=== PATIENT | male | born 1940 | race Caucasian/White ===

== ENCOUNTER 2017-01-14 12:38 | Inpatient (IN) | payer MEDICARE ==
[~2017-01-14] VITALS: Ht 167.6 cm; Wt 77.3 kg
--- NOTE | ~2017-01-14 | PROC NOTE ---
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 The patient reported he did have some difficulty with swallowing immediately after stroke, but since then has had no difficulty and is now reporting he is not having obvious difficulty swallowing. The patient currently has a left lower lobe pneumonia, which he reports this is second case of pneumonia. The previous one was premorbid to his stroke. The patient also reports he has COPD and his current diet is ADA 1800. METHODS AND MATERIALS: The patient was alert and oriented, able to feed himself and follow directions, participate in conversation. He was seated upright in a wheelchair and viewed in the lateral plane. This study was done in conjunction with radiologist, Dr. Webber. The patient was administered liquid via cup via straw applesauce half a teaspoon mixed with barium and a cookie mixed with barium. ORAL PHASE: The patient presents adequate mastication, oral awareness. He demonstrated normal ability to form and propel a cohesive bolus with all consistencies. PHARYNGEAL PHASE: The patient demonstrates normal pharyngeal phase. He did have a very slight 1 second delay with solids falling into the vallecula, then a pharyngeal swallow was triggered at the level; however, this can be considered normal in the elderly population. The patient had adequate laryngeal elevation, adequate posterior tongue to pharyngeal wall contact. He had adequate airway protection. No penetration or aspiration. No residue in the pharynx on any consistencies. RECOMMENDATIONS AND IMPRESSION: The patient presents with normal and functional oral and pharyngeal phases. No diet recommendations or therapy can be made at this time due to normal skills. Thank you for this referral. [place], [place] PROCEDURE NOTE NAME: DIPESH MINAYA UNIT #: [id number] ROOM: 408 DOCTOR: FRANCISCO MTZ BIRTHDATE: [birth year] FRANCISCO MTZ CM:PROCNOTE:PROCEDURE NOTE 1224 FRANCISCO MTZ
[~2017-01-14 12:38] MED LIST: ASPIRIN325 MG PO; ATENOLOL50 MG PO; CAPOTEN25 MG PO; CRESTOR40 MG PO; FINASTERIDE5 MG PO; PRILOSEC20 MG PO
[2017-01-14] MEDS ORDERED: ATORVASTATIN CA10 M1 PO (12:48)
[2017-01-14 13:08] LABS: HEMATOCRIT 45.4 % (42.0-52.0); HEMOGLOBIN 15.8 g/dl (14.0-18.0); MEAN CELL VOLUME 95.4 fl (80.0-94.0); MEAN CORPUSCULAR HGB 33.2 pg (27.0-31.0); MEAN CORPUSCULAR HGB CONC 34.8 g/dl (33.0-37.0); MEAN PLATELET VOLUME 10.2 fl (9.6-12.3); PLATELET COUNT AUTOMATED 242 10*3/uL (130-400); RED BLOOD COUNT 4.76 10*6/uL (4.50-5.90); RED CELL DISTRI WIDTH 12.9 % (0-14.5); WHITE BLOOD COUNT 21.3 10*3/uL (4.8-10.8)
[2017-01-14 13:25] LABS: LYMPHOCYTE # 0.4 10*3/uL (1.3-4.4); MONOCYTE # 1.3 10*3/uL (0.1-1.0); NEUTROPHIL # 19.6 10*3/uL (2.3-7.9); NEUTROPHILS 92 % (47-73); PLATELET SUFFICIENCY NORMAL (NORMAL); TOTAL CELLS COUNTED 100 #CELLS
[2017-01-14 13:27] LABS: BUN 9 mg/dl (7-24); CARBON DIOXIDE 25 mmol/L (21-32); CHLORIDE 105 mmol/L (98-107); EST GLOM FILT AFRICAN AMERICAN > 60 ml/min; GLUCOSE 119 mg/dL (65-99); POTASSIUM 3.7 mmol/L (3.5-5.1); SODIUM 140 mmol/L (136-145)
[2017-01-14 13:29] LABS: TROPONIN I < 0.015 ng/ml (<0.045)
[2017-01-14] MEDS ORDERED: PANTOPRAZOLE SO20 MG PO (15:50)
[2017-01-14] MEDS ORDERED: CLOPIDOGREL75 MG PO (15:52)
[2017-01-14] MEDS ORDERED: VITAMIN D31000 IU PO (16:13)
[2017-01-14 18:09] LABS: CKMB 1.4 ng/ml (0.5-3.6); CPK 84 U/L (39-308)
[2017-01-14 18:10] LABS: TROPONIN I < 0.015 ng/ml (<0.045)
[2017-01-14 18:19] LABS: LA>2 REFLEX 2 HR DRAW NOW
[2017-01-15 01:20] LABS: CKMB 2.2 ng/ml (0.5-3.6); CPK 95 U/L (39-308); TROPONIN I < 0.015 ng/ml (<0.045)
[2017-01-15 06:32] LABS: HEMATOCRIT 40.9 % (42.0-52.0); MEAN CELL VOLUME 94.9 fl (80.0-94.0); MEAN CORPUSCULAR HGB 32.5 pg (27.0-31.0); MEAN CORPUSCULAR HGB CONC 34.2 g/dl (33.0-37.0); MEAN PLATELET VOLUME 10.3 fl (9.6-12.3); PLATELET COUNT AUTOMATED 214 10*3/uL (130-400); RED BLOOD COUNT 4.31 10*6/uL (4.50-5.90); RED CELL DISTRI WIDTH 13.1 % (0-14.5); WHITE BLOOD COUNT 19.5 10*3/uL (4.8-10.8)
[2017-01-15 06:50] LABS: CKMB 2.4 ng/ml (0.5-3.6); CPK 99 U/L (39-308)
[2017-01-15 07:01] LABS: ALBUMIN 2.9 gm/dl (3.1-4.5); ALKALINE PHOSPHATASE 87 U/L (45-117); BILIRUBIN, TOTAL 1.1 mg/dl (0.2-1.0); BUN 11 mg/dl (7-24); CARBON DIOXIDE 23 mmol/L (21-32); CHLORIDE 110 mmol/L (98-107); CHOLESTEROL 144 mg/dL (<200); EST GLOM FILT AFRICAN AMERICAN > 60 ml/min; FREE T4 1.07 ng/dl (0.76-1.46); GLUCOSE 142 mg/dL (65-99); HDL CHOLESTEROL 52 mg/dl (40-60); LDL CHOLESTEROL 82 mg/dL (9-159); MAGNESIUM 2.1 mg/dL (1.5-2.1); PHOSPHOROUS 1.6 mg/dL (2.5-4.9); POTASSIUM 3.6 mmol/L (3.5-5.1); SGOT/AST 13 IU/L (3-35); SGPT/ALT 18 U/L (12-78); SODIUM 144 mmol/L (136-145); TOTAL PROTEIN 6.6 gm/dL (6.4-8.2); TRIGLYCERIDES 52 mg/dl (<150); VLDL CHOLESTEROL 10 mg/dL (6-40)
[2017-01-15 07:02] LABS: TROPONIN I < 0.015 ng/ml (<0.045)
[2017-01-15 07:05] LABS: THYROID STIM HORMONE (HS) 0.764 uIU/ml (0.358-4.75)
[2017-01-15 07:07] LABS: LYMPHOCYTE # 0.4 10*3/uL (1.3-4.4); NEUTROPHIL # 19.1 10*3/uL (2.3-7.9); NEUTROPHILS 98 % (47-73); TOTAL CELLS COUNTED 100 #CELLS
[2017-01-15 07:08] LABS: PLATELET SUFFICIENCY NORMAL (NORMAL)
[2017-01-15 07:45] LABS: HEMOGLOBIN A1c 5.5 % (4.8-5.6)
[2017-01-15 08:09] LABS: FOLIC ACID 2.58 ng/mL (>5.38); VITAMIN D, 25-HYDROXY 35.6 ng/mL (30-100)
[2017-01-16 07:05] LABS: HEMATOCRIT 40.2 % (42.0-52.0); HEMOGLOBIN 13.8 g/dl (14.0-18.0); MEAN CELL VOLUME 95.3 fl (80.0-94.0); MEAN CORPUSCULAR HGB 32.7 pg (27.0-31.0); MEAN CORPUSCULAR HGB CONC 34.3 g/dl (33.0-37.0); MEAN PLATELET VOLUME 10.6 fl (9.6-12.3); PLATELET COUNT AUTOMATED 257 10*3/uL (130-400); RED BLOOD COUNT 4.22 10*6/uL (4.50-5.90); RED CELL DISTRI WIDTH 13.4 % (0-14.5); WHITE BLOOD COUNT 25.6 10*3/uL (4.8-10.8)
[2017-01-16 07:33] LABS: BUN 17 mg/dl (7-24); CARBON DIOXIDE 24 mmol/L (21-32); CHLORIDE 109 mmol/L (98-107); EST GLOM FILT AFRICAN AMERICAN > 60 ml/min; GLUCOSE 138 mg/dL (65-99); POTASSIUM 3.3 mmol/L (3.5-5.1); SODIUM 146 mmol/L (136-145)
[2017-01-16 07:59] LABS: LYMPHOCYTE # 1.3 10*3/uL (1.3-4.4); NEUTROPHIL # 23.3 10*3/uL (2.3-7.9); NEUTROPHILS 91 % (47-73); PLATELET SUFFICIENCY NORMAL (NORMAL); TOTAL CELLS COUNTED 100 #CELLS
[2017-01-17 06:12] LABS: HEMATOCRIT 42.8 % (42.0-52.0); HEMOGLOBIN 14.2 g/dl (14.0-18.0); MEAN CELL VOLUME 98.2 fl (80.0-94.0); MEAN CORPUSCULAR HGB 32.6 pg (27.0-31.0); MEAN CORPUSCULAR HGB CONC 33.2 g/dl (33.0-37.0); MEAN PLATELET VOLUME 10.7 fl (9.6-12.3); PLATELET COUNT AUTOMATED 248 10*3/uL (130-400); RED BLOOD COUNT 4.36 10*6/uL (4.50-5.90); RED CELL DISTRI WIDTH 13.5 % (0-14.5); WHITE BLOOD COUNT 17.9 10*3/uL (4.8-10.8)
[2017-01-17 06:36] LABS: LYMPHOCYTE # 0.5 10*3/uL (1.3-4.4); METAMYELOCYTES 1 % (0-0); MONOCYTE # 0.4 10*3/uL (0.1-1.0); NEUTROPHIL # 16.8 10*3/uL (2.3-7.9); NEUTROPHILS 94 % (47-73); PLATELET SUFFICIENCY NORMAL (NORMAL); TOTAL CELLS COUNTED 100 #CELLS
[2017-01-17 06:40] LABS: ALBUMIN 3.1 gm/dl (3.1-4.5); ALKALINE PHOSPHATASE 83 U/L (45-117); BILIRUBIN, TOTAL 0.6 mg/dl (0.2-1.0); BUN 14 mg/dl (7-24); CARBON DIOXIDE 24 mmol/L (21-32); CHLORIDE 108 mmol/L (98-107); EST GLOM FILT AFRICAN AMERICAN > 60 ml/min; GLUCOSE 120 mg/dL (65-99); POTASSIUM 3.7 mmol/L (3.5-5.1); SGOT/AST 35 IU/L (3-35); SGPT/ALT 44 U/L (12-78); SODIUM 144 mmol/L (136-145); TOTAL PROTEIN 6.7 gm/dL (6.4-8.2)
[2017-01-18 06:17] LABS: HEMATOCRIT 43.5 % (42.0-52.0); HEMOGLOBIN 14.6 g/dl (14.0-18.0); MEAN CELL VOLUME 96.2 fl (80.0-94.0); MEAN CORPUSCULAR HGB 32.3 pg (27.0-31.0); MEAN CORPUSCULAR HGB CONC 33.6 g/dl (33.0-37.0); MEAN PLATELET VOLUME 10.6 fl (9.6-12.3); NUCLEATED RED BLOOD CELL 0.1 10*3/uL (0.0-0.0); NUCLEATED RED BLOOD CELL 0.4 % (0.0-0.0); PLATELET COUNT AUTOMATED 244 10*3/uL (130-400); RED BLOOD COUNT 4.52 10*6/uL (4.50-5.90); RED CELL DISTRI WIDTH 13.3 % (0-14.5); WHITE BLOOD COUNT 15.9 10*3/uL (4.8-10.8)
[2017-01-18 06:41] LABS: BUN 13 mg/dl (7-24); CARBON DIOXIDE 26 mmol/L (21-32); CHLORIDE 108 mmol/L (98-107); EST GLOM FILT AFRICAN AMERICAN > 60 ml/min; GLUCOSE 89 mg/dL (65-99); POTASSIUM 3.3 mmol/L (3.5-5.1); SGOT/AST 37 IU/L (3-35); SGPT/ALT 58 U/L (12-78); SODIUM 145 mmol/L (136-145)
[2017-01-18 06:42] LABS: ALKALINE PHOSPHATASE 77 U/L (45-117); BILIRUBIN, TOTAL 0.5 mg/dl (0.2-1.0); TOTAL PROTEIN 6.5 gm/dL (6.4-8.2)
[2017-01-18 06:52] LABS: LYMPHOCYTE # 1.1 10*3/uL (1.3-4.4); METAMYELOCYTES 2 % (0-0); MONOCYTE # 0.8 10*3/uL (0.1-1.0); MYELOCYTES 1 % (0-0); NEUTROPHIL # 13.5 10*3/uL (2.3-7.9); NEUTROPHILS 85 % (47-73); TOTAL CELLS COUNTED 100 #CELLS
[2017-01-18 06:53] LABS: PLATELET SUFFICIENCY NORMAL (NORMAL)
[2017-01-18] MEDS ORDERED: CLEOCIN HCL150 MG PO (10:22)
[2017-01-18] MEDS ORDERED: MUCINEX ER600 MG PO (10:22)
[2017-01-18] MEDS ORDERED: PREDNISONE10 MG PO (10:22)
[2017-01-18] MEDS ORDERED: TESSALON PERLE100 MG PO (12:19)
== END 2017-01-18 10:38 | disposition home or self-care (01) | DRG 871 ==
LOC: ED 12:38 → EDHOLD 14:39 → 4E 14:39
PROVIDERS: Emergency Medicine; Family Medicine; Internal Medicine
PROC: BD1BYZZ Fluoroscopy of Mouth/Oropharynx using Other Contrast (ICD-10-PCS; principal; 2017-01-15)
DX: A41.9 Sepsis, unspecified organism (principal); J18.9 Pneumonia, unspecified organism; J43.9 Emphysema, unspecified; N40.0 Benign prostatic hyperplasia without lower urinary tract symptoms; I10 Essential (primary) hypertension; E78.5 Hyperlipidemia, unspecified; I25.2 Old myocardial infarction; Z86.73 Personal history of transient ischemic attack (TIA), and cerebral infarction without residual deficits; Z87.891 Personal history of nicotine dependence; Z82.49 Family history of ischemic heart disease and other diseases of the circulatory system; Z84.89 Family history of other specified conditions; Z79.899 Other long term (current) drug therapy

== ENCOUNTER 2017-01-28 11:44 | Inpatient (IN) | payer MEDICARE ==
[~2017-01-28] VITALS: Ht 167.6 cm; Wt 76.2 kg
--- NOTE | ~2017-01-28 | PR ---
[place], [place] PROGRESS NOTE NAME: DIPESH MINAYA UNIT #: [id number] ROOM: 406 DOCTOR: KIMBERLY CARMONA MD BIRTHDATE: [birth year] DOS: 01/31/2017 SUBJECTIVE: The patient was seen and examined on 01/31/2017. He has been noted comfortable at this time without any distress. The patient's shortness of breath has been improving. Denies symptoms of chest pain or any abdominal pain. OBJECTIVE: VITAL SIGNS: For the patient which has been recorded showed the temperature of the patient noted as normal. The respiratory rate of the patient recorded as 16, heart rate 88. Blood pressure 138/80-145/84. The pulse oxygen saturation of the patient recorded as 90% on 3.5 L nasal cannula. HEENT: Shows no new change. NECK: Supple. CARDIOVASCULAR SYSTEM: S1, S2 is audible. LUNGS: The patient noted without any wheezing or crackles. Breaths are noted mildly decreased bilaterally. ABDOMEN: Soft, nontender. LABORATORY DATA: The patient's CBC today: WBC count 21.5, hemoglobin 14.6, hematocrit 43.4 with platelet count 244,000. 98% segmented neutrophils noted in the CBC. The chest x-ray of the patient that was done this morning for the patient was personally reviewed. The chest x-ray, the patient shows increased interstitial marking, the patient infiltration in the lower lungs bilaterally. IMPRESSION: 1. Resolving acute pneumonia gradually with leukocytosis, which has been noted, decreased partially from yesterday as well. 2. Acute exacerbation of chronic obstructive pulmonary disease with use of steroid resulting in leukocytosis as well. PLAN OF TREATMENT: The patient has been getting Solu-Medrol at the present time b.i.d. dosing at 30 mg b.i.d. that was started from yesterday. Leukocytosis, improving. Ambulation was encouraged. Usual care, other supportive therapy, plan of management. Other treatment plan of management will be continued. [place], [place] PROGRESS NOTE NAME: DIPESH MINAYA UNIT #: [id number] ROOM: 406 DOCTOR: KIMBERLY CARMONA MD BIRTHDATE: [birth year] KIMBERLY MISTRY MD CM:PNTRANS [id number] KIMBERLY MORRISSEY MD 01/31/17 181 interface
--- NOTE | ~2017-01-28 | PR ---
[place], [place] PROGRESS NOTE NAME: DIPESH MINAYA UNIT #: [id number] ROOM: 406 DOCTOR: KIMBERLY CARMONA MD BIRTHDATE: [birth year] DOS: 01/30/2017 PULMONARY FOLLOWUP SUBJECTIVE: He has been noted comfortable at this time, resting on his bed. The shortness of breath symptoms have been subsiding. There were no symptoms of chest pain or any abdominal pain. OBJECTIVE: VITAL SIGNS: Of the patient, which have been recorded shows the temperature noted normal, respiratory rate 18, heart rate 89, blood pressure 121/63. The pulse oxygen saturation of the patient recorded as 92% on 3 liters canula. HEENT: Examination shows no new change. NECK: Supple. CARDIOVASCULAR: S1, S2 is audible. LUNGS: Noted with mild expiratory wheezing, no crackles. Breath sounds noted moderately decreased bilaterally. ABDOMEN: Soft, nontender. LABORATORY DATA: CBC today: WBC count 31.8, hemoglobin 13.9, hematocrit 41.6, platelet count was normal, 96% segmented neutrophils. The BMP this morning, glucose 167, remaining CBC was normal. Urinalysis this morning was noted clear of any abnormalities. Blood culture from 01/28/2017 shows no bacterial growth, final culture results were pending. IMPRESSION: 1. The patient with acute exacerbation of chronic obstructive pulmonary disease, acute tracheobronchitis as well as acute pneumonia. 2. Leukocytosis. The patient, which has been noted yesterday, most likely induced by the corticosteroids. PLAN OF TREATMENT: Continuation of the bronchodilators, oxygen supplementation, use of the steroids. The patient's dose of steroids could be decreased today. Obtain a followup chest x-ray in the morning for reassessment. Continue in the meantime other supportive therapy, plan of management. Usual care. All other treatment plan and management. Further changes in treatment will be done based on the progression of the illness. [place], [place] PROGRESS NOTE NAME: DIPESH MINAYA UNIT #: [id number] ROOM: 406 DOCTOR: KIMBERLY CARMONA MD BIRTHDATE: [birth year] KIMBERLY MISTRY MD CM:PNTRANS [id number] [phone] KIMBERLY MORRISSEY MD 01/30/[id number] interface
--- NOTE | ~2017-01-28 | CON ---
[place], [place] REPORT OF CONSULTATION [id number] UNIT #: [id number] ROOM: 406 DOCTOR: KIMBERLY CARMONA MD BIRTHDATE: [birth year] DOS: 01/29/2017 PULMONARY CONSULTATION EVALUATION AND MANAGEMENT REQUESTING PHYSICIAN: The hospitalist service of the patient. REASON FOR CONSULTATION: Assess the patient for COPD. HISTORY OF PRESENT ILLNESS: This is a 76-year-old white male who has been previously admitted to the hospital and managed for the acute pneumonia. The patient has been treated and discharged home on antibiotics and prednisone. He was also noted for this patient, acute exacerbation of COPD at that time. The patient has been currently readmitted to the hospital. The patient came to the Emergency Room as the patient developed symptoms of coughing with intermittent sputum expectoration, yellowish in color. The quantity of sputum for this patient has been noted, mild to moderate. There were no symptoms of hemoptysis. The patient does complain of shortness of breath with some wheezing as well. There were no symptoms of chest pain. The patient has been admitted to the hospital, currently managed for the patient with acute exacerbation of COPD. He has been taking his nebulized bronchodilator stating the symptoms for the patient currently which had been worsened and nonresolving. REVIEW OF SYSTEMS: CONSTITUTIONAL SYMPTOMS: He does have symptoms of fatigue and tiredness, remained fatigued per the patient since discharge. Denies any changes in appetite. EYES: Denies any burning, redness, or tenderness. EARS, NOSE, THROAT SYMPTOMS: Denies sore throat, hoarseness, otalgia, postnasal drainage. CARDIOVASCULAR SYSTEM: Denies anginal pain, edema or pain of the lower extremities. GASTROINTESTINAL SYMPTOMS: Dysphagia, nausea, vomiting, diarrhea, abdominal pain, hematemesis, melena, or any abnormal weight loss history. GENITOURINARY SYMPTOMS: The patient denies dysuria, suprapubic pain, hematuria, noted some urinary hesitancy for this patient as well. Denies any flank pain. SKIN: Denies lesions or rashes. MUSCULOSKELETAL SYMPTOMS: Denies acute joint pain, redness, or tenderness. CENTRAL NERVOUS SYSTEM: Denies any symptoms of headache, diplopia, seizure or tingling sensation of the extremities. Remaining systems were reviewed with the patient, they were noted all negative. PAST MEDICAL HISTORY: Of the patient reported as history of: 1. Centrilobular emphysema. 2. Recent admission of medical management of the acute pneumonia for this patient. 3. Hyperlipidemia for this patient. 4. Essential hypertension. 5. History of coronary artery disease. 6. Past history in this patient with recovery neurological described. [place], [place] REPORT OF CONSULTATION NAME: DIPESH MINAYA UNIT #: [id number] ROOM: [facility] DOCTOR: FEDE MORRISSEY MD,KIMBERLY BIRTHDATE: [birth year] PAST SURGICAL HISTORY: ____ hernia repair. SOCIAL HISTORY: The patient denies any history of alcohol or any illicit drug use. He has noted tobacco use at a younger age and smoked up to 2 pack of cigarettes per day until tobacco cessation done 2006. Denies history of alcohol or any illicit drug use. The patient's work history was noted, work in the ____ for 40 years or greater with the exposure to the dust and possible asbestos as well. FAMILY HISTORY: Father at younger age per the patient during World War 2. Mother per the patient at the age of 8282 years old, complications related to coronary artery disease. History of cerebral palsy and coronary artery disease described in 2 sisters as well. MEDICATIONS: From home are reported use of: 1. Atenolol 50 mg daily. 2. Lipitor 10 mg daily. 3. Tessalon Perles 100 mg p.o. t.i.d. 4. Captopril 25 mg p.o. b.i.d. 5. Vitamin D 1000 international units of the patient b.i.d. 6. Plavix 75 mg daily. 7. Mucinex 1200 mg p.o. b.i.d. 8. Protonix 20 mg p.o. daily. DRUG ALLERGIES: Noted no known drug allergies. PHYSICAL EXAMINATION: GENERAL: [id number]-old male who has been currently noted awake and alert without any distress. The patient's height was recorded by the nursing staff at the time of admission with height of 5 feet 6 inches, weight of 168 pounds, BMI 27. VITAL SIGNS: The patient normal temperature, respiratory rate 18-20, heart rate of 92-89, blood pressure 118/77-124/64. Intake for the patient recorded 650 mL, the output was not recorded. Pulse oxygen saturation on room air was 93% saturation with 91% saturation. HEENT: Head was atraumatic. Eyes nonicterus. NECK: Supple. CARDIOVASCULAR SYSTEM: S1, S2 audible. LUNGS: For the patient noted without any wheezing or crackles at the present time. Breaths are noted mildly decreased bilaterally. ABDOMEN: Soft, nontender, bowel sounds present. CENTRAL NERVOUS SYSTEM: Cranial nerves 2-12 intact. No focal deficit. MUSCULOSKELETAL SYMPTOMS: No deformities. SKIN: No lesions or rashes. LABORATORY DATA: CBC of the patient 01/28/2017, on admission, WBC count 26,000, hemoglobin and hematocrit was normal, platelet count of 209,000, 93% segmented neutrophils. CMP of the patient on 01/28/2017, BUN and creatinine was normal for this patient was noted, albumin 3.0. The troponin was noted as normal. [place], [place] REPORT OF CONSULTATION NAME: DIPESH MINAYA UNIT #: [id number] ROOM: [facility] DOCTOR: FEDE MORRISSEY MD,KIMBERLY BIRTHDATE: [birth year] Ultrasound of the testes of the patient that was done yesterday was described as normal testicular examination except large bilateral hydroceles. PT and PTT for this patient were noted as normal this morning. CMP this morning for the patient, glucose 157, normal BUN and creatinine. Total protein of the patient, albumin mildly decreased. CBC this morning, WBC count 20.6, hemoglobin 14.1, hematocrit 41.6, platelet count of 211,000. The chest x-ray 2-view that was done yesterday in the Emergency Room, the patient shows progressive resolution, improvement in the left lower lobe area of consolidation, infiltration, but the resolution noted somewhat incomplete. IMPRESSION: 1. The patient who has been currently admitted to the hospital noted acute exacerbation of chronic obstructive pulmonary disease, acute tracheobronchitis with the leukocytosis. 2. Recent hospitalization of the patient, which has been noted for the patient with the review of the medical record for the patient under care of the hospitalist services from the date of service of 01/14/2017 and discharged home for this patient on 01/18/2017. 3. Past history of heavy nicotine dependence as well. The leukocytosis may be considered as a result of ongoing incomplete resolution infection and a possibility of steroid-induced leukocytosis as well. 4. Symptoms of benign prostatic hyperplasia. 5. Hydrocele for the patient was also noted bilaterally on this admission as well. 6. History of coronary artery disease and other problem including past strokes for the patient, which remains all stable. PLAN OF TREATMENT: The patient has been currently getting intravenous antibiotics for the patient that will be continued. The dose of Solu-Medrol for the patient has been currently been given the patient 40 mg 8 hours. The dose will be decreased for the patient monitoring leukocytosis. Obtain the sputum for Gram stain and culture. Order the Mucinex for the patient to help clear secretion from the endobronchial tree as well. Also ordered the flutter valve use. Further treatment changes will be done based on the progression of the illness. KIMBERLY MISTRY MD CM:CONSTR:REPORT OF CONSULTATION 1206 02/01/17 0229 interface
[~2017-01-28 11:44] MED LIST changes: +ATORVASTATIN CA10 M1 PO; +CLEOCIN HCL150 MG PO; +CLOPIDOGREL75 MG PO; +MUCINEX ER600 MG PO; +PANTOPRAZOLE SO20 MG PO; +PREDNISONE10 MG PO; +TESSALON PERLE100 MG PO; +VITAMIN D31000 IU PO
[2017-01-28 11:50] VITALS: BP 109/68
[2017-01-28 12:32] LABS: MEAN CELL VOLUME 96.3 fl (80.0-94.0); MEAN CORPUSCULAR HGB 32.8 pg (27.0-31.0); MEAN CORPUSCULAR HGB CONC 34.1 g/dl (33.0-37.0); MEAN PLATELET VOLUME 9.8 fl (9.6-12.3); PLATELET COUNT AUTOMATED 209 10*3/uL (130-400); RED BLOOD COUNT 4.57 10*6/uL (4.50-5.90); RED CELL DISTRI WIDTH 13.6 % (0-14.5)
[2017-01-28 12:49] LABS: BASOPHIL # 0.3 10*3/uL (0-0.1); BASOPHILS 1 % (0-1); LYMPHOCYTE # 0.5 10*3/uL (1.3-4.4); NEUTROPHIL # 24.2 10*3/uL (2.3-7.9); NEUTROPHILS 93 % (47-73); TOTAL CELLS COUNTED 100 #CELLS
[2017-01-28 12:50] LABS: ALKALINE PHOSPHATASE 70 U/L (45-117); BUN 19 mg/dl (7-24); CARBON DIOXIDE 25 mmol/L (21-32); CHLORIDE 107 mmol/L (98-107); EST GLOM FILT AFRICAN AMERICAN > 60 ml/min; GLUCOSE 91 mg/dL (65-99); PLATELET SUFFICIENCY NORMAL (NORMAL); POTASSIUM 3.9 mmol/L (3.5-5.1); SGOT/AST 14 IU/L (3-35); SGPT/ALT 28 U/L (12-78); SODIUM 141 mmol/L (136-145); TOTAL PROTEIN 6.4 gm/dL (6.4-8.2)
[2017-01-28 12:52] LABS: TROPONIN I < 0.015 ng/ml (<0.045)
[2017-01-28] MEDS ORDERED: PROSCAR5 M1 PO (15:54)
[2017-01-28] MEDS ORDERED: ALEVE220 MG PO (15:57)
[2017-01-28] MEDS ORDERED: ROSUVASTATIN CA40 MG PO (15:58)
[2017-01-28] MEDS ORDERED: ALLERGY RELIEF25 MG PO (15:59)
[2017-01-28 16:00] VITALS: BP 118/77
[2017-01-28 20:00] VITALS: BP 108/62
[2017-01-29] VITALS: BP 124/63
[2017-01-29 06:51] LABS: HEMATOCRIT 41.6 % (42.0-52.0); HEMOGLOBIN 14.1 g/dl (14.0-18.0); MEAN CELL VOLUME 97.7 fl (80.0-94.0); MEAN CORPUSCULAR HGB 33.1 pg (27.0-31.0); MEAN CORPUSCULAR HGB CONC 33.9 g/dl (33.0-37.0); MEAN PLATELET VOLUME 10.2 fl (9.6-12.3); PLATELET COUNT AUTOMATED 211 10*3/uL (130-400); RED BLOOD COUNT 4.26 10*6/uL (4.50-5.90); RED CELL DISTRI WIDTH 13.6 % (0-14.5); WHITE BLOOD COUNT 20.6 10*3/uL (4.8-10.8)
[2017-01-29 07:13] LABS: CHLORIDE 108 mmol/L (98-107); POTASSIUM 3.8 mmol/L (3.5-5.1); SODIUM 141 mmol/L (136-145)
[2017-01-29 07:19] LABS: INTERNATIONAL NORM RATIO 1.1 (2.0-3.5); PROTHROMBIN TIME 11.6 SECONDS (9.0-12.4)
[2017-01-29 07:23] LABS: ALBUMIN 2.9 gm/dl (3.1-4.5); ALKALINE PHOSPHATASE 65 U/L (45-117); BILIRUBIN, TOTAL 0.9 mg/dl (0.2-1.0); BUN 22 mg/dl (7-24); CARBON DIOXIDE 23 mmol/L (21-32); EST GLOM FILT AFRICAN AMERICAN > 60 ml/min; GLUCOSE 157 mg/dL (65-99); MAGNESIUM 2.3 mg/dL (1.5-2.1); PHOSPHOROUS 2.7 mg/dL (2.5-4.9); SGOT/AST 10 IU/L (3-35); SGPT/ALT 23 U/L (12-78); TOTAL PROTEIN 6.3 gm/dL (6.4-8.2)
[2017-01-29 07:44] LABS: LYMPHOCYTE # 0.4 10*3/uL (1.3-4.4); MONOCYTE # 0.2 10*3/uL (0.1-1.0); NEUTROPHILS 97 % (47-73); PLATELET SUFFICIENCY NORMAL (NORMAL); TOTAL CELLS COUNTED 100 #CELLS
[2017-01-29 08:00] VITALS: BP 120/80
[2017-01-29 12:00] VITALS: BP 118/61
[2017-01-29 16:00] VITALS: BP 127/65
[2017-01-29 20:00] VITALS: BP 120/67
[2017-01-30] VITALS: BP 144/73
[2017-01-30 05:55] LABS: HEMATOCRIT 41.6 % (42.0-52.0); HEMOGLOBIN 13.9 g/dl (14.0-18.0); MEAN CELL VOLUME 98.1 fl (80.0-94.0); MEAN CORPUSCULAR HGB 32.8 pg (27.0-31.0); MEAN CORPUSCULAR HGB CONC 33.4 g/dl (33.0-37.0); MEAN PLATELET VOLUME 10.2 fl (9.6-12.3); PLATELET COUNT AUTOMATED 227 10*3/uL (130-400); RED BLOOD COUNT 4.24 10*6/uL (4.50-5.90); RED CELL DISTRI WIDTH 13.6 % (0-14.5); WHITE BLOOD COUNT 31.8 10*3/uL (4.8-10.8)
[2017-01-30 06:20] LABS: BUN 19 mg/dl (7-24); CARBON DIOXIDE 25 mmol/L (21-32); CHLORIDE 109 mmol/L (98-107); EST GLOM FILT AFRICAN AMERICAN > 60 ml/min; GLUCOSE 167 mg/dL (65-99); POTASSIUM 4.2 mmol/L (3.5-5.1); SODIUM 141 mmol/L (136-145)
[2017-01-30 06:37] LABS: BILIRUBIN NEGATIVE (NEGATIVE); BLOOD NEGATIVE (NEGATIVE); CLARITY CLEAR (CLEAR); COLOR YELLOW (YELLOW); GLUCOSE NEGATIVE (NEGATIVE); KETONE NEGATIVE (NEGATIVE); LEUKO ESTERASE NEGATIVE (NEGATIVE); NITRITE NEGATIVE (NEGATIVE); PH 6.5 (5.0-9.0); PROTEIN TRACE (NEGATIVE); UROBILINOGEN 0.2 E.U./dl (0.2-1.0)
[2017-01-30 06:50] LABS: URINE REFLEX COMMENT NO (NO)
[2017-01-30 07:18] LABS: LYMPHOCYTE # 0.3 10*3/uL (1.3-4.4); METAMYELOCYTES 1 % (0-0); MONOCYTE # 0.6 10*3/uL (0.1-1.0); NEUTROPHIL # 30.5 10*3/uL (2.3-7.9); NEUTROPHILS 96 % (47-73); PLATELET SUFFICIENCY NORMAL (NORMAL); TOTAL CELLS COUNTED 100 #CELLS
[2017-01-30 08:00] VITALS: BP 123/70
[2017-01-30 12:00] VITALS: BP 127/78
[2017-01-30 16:00] VITALS: BP 121/62
[2017-01-30 20:00] VITALS: BP 142/65
[2017-01-31] VITALS: BP 147/62
[2017-01-31 06:10] LABS: HEMATOCRIT 43.4 % (42.0-52.0); HEMOGLOBIN 14.6 g/dl (14.0-18.0); MEAN CORPUSCULAR HGB CONC 33.6 g/dl (33.0-37.0); MEAN PLATELET VOLUME 10.4 fl (9.6-12.3); PLATELET COUNT AUTOMATED 244 10*3/uL (130-400); RED BLOOD COUNT 4.43 10*6/uL (4.50-5.90); RED CELL DISTRI WIDTH 13.6 % (0-14.5); WHITE BLOOD COUNT 21.5 10*3/uL (4.8-10.8)
[2017-01-31 06:54] LABS: LYMPHOCYTE # 0.2 10*3/uL (1.3-4.4); MONOCYTE # 0.2 10*3/uL (0.1-1.0); NEUTROPHIL # 21.1 10*3/uL (2.3-7.9); NEUTROPHILS 98 % (47-73); TOTAL CELLS COUNTED 100 #CELLS
[2017-01-31 06:57] LABS: PLATELET SUFFICIENCY NORMAL (NORMAL)
[2017-01-31 08:00] VITALS: BP 145/84
[2017-01-31 12:00] VITALS: BP 138/80
[2017-01-31 16:00] VITALS: BP 159/91
[2017-01-31] MEDS ORDERED: LEVOFLOXACIN500 MG PO (17:30)
[2017-01-31] MEDS ORDERED: OXYGEN NAS (17:30)
[2017-01-31] MEDS ORDERED: VENTOLIN H0.09 MG/AC INH (17:30)
[2017-01-31] MEDS ORDERED: PREDNISONE10 MG PO (17:30)
== END 2017-01-31 20:07 | disposition home or self-care (01) | DRG 871 ==
LOC: ED 11:44 → EDHOLD 14:03 → 4E 14:03
PROVIDERS: Family Medicine Adult Medicine; Internal Medicine; Student in an Organized Health Care Education/Training Program
DX: A41.9 Sepsis, unspecified organism (principal); J18.9 Pneumonia, unspecified organism; E44.0 Moderate protein-calorie malnutrition; J44.0 Chronic obstructive pulmonary disease with (acute) lower respiratory infection; J44.1 Chronic obstructive pulmonary disease with (acute) exacerbation; I10 Essential (primary) hypertension; N40.0 Benign prostatic hyperplasia without lower urinary tract symptoms; E78.5 Hyperlipidemia, unspecified; N43.3 Hydrocele, unspecified; J20.9 Acute bronchitis, unspecified; T38.0X5A Adverse effect of glucocorticoids and synthetic analogues, initial encounter; I25.10 Atherosclerotic heart disease of native coronary artery without angina pectoris; F17.200 Nicotine dependence, unspecified, uncomplicated; Z86.73 Personal history of transient ischemic attack (TIA), and cerebral infarction without residual deficits; Z82.49 Family history of ischemic heart disease and other diseases of the circulatory system; Z79.899 Other long term (current) drug therapy; Z68.27 Body mass index [BMI] 27.0-27.9, adult; Y92.89 Other specified places as the place of occurrence of the external cause

== ENCOUNTER → 2017-06-08 | Outpatient (CLI) | payer MEDICARE ==
[~2017-06-08] MED LIST changes: +ALEVE220 MG PO; +ALLERGY RELIEF25 MG PO; +LEVOFLOXACIN500 MG PO; +OXYGEN NAS; +PROSCAR5 M1 PO; +ROSUVASTATIN CA40 MG PO; +VENTOLIN H0.09 MG/AC INH
== END ==
LOC: MRI 08:45
DX: M47.26 Other spondylosis with radiculopathy, lumbar region (principal); M51.27 Other intervertebral disc displacement, lumbosacral region; M48.07 Spinal stenosis, lumbosacral region

== ENCOUNTER → 2017-12-13 | Outpatient (CLI) | payer MEDICARE | END | disposition home or self-care (01) | LOC: RAD 12:38 | DX: M25.511 Pain in right shoulder (principal); M25.512 Pain in left shoulder; M47.892 Other spondylosis, cervical region ==

== ENCOUNTER → 2017-12-16 | Outpatient (CLI) | payer MEDICARE | END | disposition home or self-care (01) | LOC: MRI 08:42 | DX: M47.812 Spondylosis without myelopathy or radiculopathy, cervical region (principal); M50.321 Other cervical disc degeneration at C4-C5 level; M50.323 Other cervical disc degeneration at C6-C7 level; M53.82 Other specified dorsopathies, cervical region ==

== ENCOUNTER 2020-05-16 13:54 | Emergency (ER) | payer MEDICARE ==
[~2020-05-16] VITALS: Ht 167.6 cm; Wt 68.0 kg
[2020-05-16 14:48] LABS: BASO % 0.2 % (0.0-1.0); EOS % 0.1 % (1.0-4.0); HEMATOCRIT 44.5 % (42.0-52.0); LYMPH # 1.4 10*3/uL (1.3-4.4); LYMPH % 10.4 % (27.0-41.0); MEAN CELL VOLUME 96.9 fl (80.0-94.0); MEAN CORPUSCULAR HGB 32.5 pg (27.0-31.0); MEAN CORPUSCULAR HGB CONC 33.5 g/dl (33.0-37.0); MEAN PLATELET VOLUME 10.5 fl (9.6-12.3); MONO # 1.2 10*3/uL (0.1-1.0); NEUT # 10.7 10*3/uL (2.3-7.9); NEUT % 79.7 % (47.0-73.0); PLATELET COUNT AUTOMATED 230 10*3/uL (130-400); RED BLOOD COUNT 4.59 10*6/uL (4.50-5.90); RED CELL DISTRI WIDTH 12.3 % (0-14.5); WHITE BLOOD COUNT 13.5 10*3/uL (4.8-10.8)
[2020-05-16 15:07] LABS: ALBUMIN 4.2 gm/dl (3.1-4.5); ALKALINE PHOSPHATASE 111 U/L (45-117); BUN 15 mg/dl (7-24); CHLORIDE 106 mmol/L (98-107); CREATININE 1.16 mg/dL (0.70-1.30); SGOT/AST 33 IU/L (3-35); SGPT/ALT 24 U/L (12-78); SODIUM 137 mmol/L (136-145); TOTAL PROTEIN 7.7 gm/dL (6.4-8.2)
[2020-05-16 15:11] LABS: POTASSIUM 3.5 mmol/L (3.5-5.1)
[2020-05-16] MEDS ORDERED: NORCO 5-325 TA1 EACH PO (17:01)
== END 2020-05-16 17:13 ==
LOC: ED 13:54
PROVIDERS: Physician Assistant
DX: S39.012A Strain of muscle, fascia and tendon of lower back, initial encounter (principal); S60.221A Contusion of right hand, initial encounter; I10 Essential (primary) hypertension; I25.2 Old myocardial infarction; J44.9 Chronic obstructive pulmonary disease, unspecified; I25.10 Atherosclerotic heart disease of native coronary artery without angina pectoris; Z86.73 Personal history of transient ischemic attack (TIA), and cerebral infarction without residual deficits; Z79.899 Other long term (current) drug therapy; W11.XXXA Fall on and from ladder, initial encounter; Y93.89 Activity, other specified; Y92.89 Other specified places as the place of occurrence of the external cause; Y99.8 Other external cause status

== ENCOUNTER 2020-05-19 21:35 | Emergency (ER) | payer MEDICARE ==
[~2020-05-19] VITALS: Ht 167.6 cm; Wt 68.0 kg
[~2020-05-19 21:35] MED LIST changes: +NORCO 5-325 TA1 EACH PO
[2020-05-19 23:05] LABS: BASO % 0.2 % (0.0-1.0); EOS % 0.1 % (1.0-4.0); HEMATOCRIT 39.6 % (42.0-52.0); LYMPH # 0.6 10*3/uL (1.3-4.4); LYMPH % 3.5 % (27.0-41.0); MEAN CELL VOLUME 97.5 fl (80.0-94.0); MEAN CORPUSCULAR HGB CONC 32.8 g/dl (33.0-37.0); MEAN PLATELET VOLUME 10.3 fl (9.6-12.3); MONO # 1.3 10*3/uL (0.1-1.0); MONO % 7.4 % (3.0-9.0); NEUT # 15.1 10*3/uL (2.3-7.9); NEUT % 88.2 % (47.0-73.0); PLATELET COUNT AUTOMATED 223 10*3/uL (130-400); RED BLOOD COUNT 4.06 10*6/uL (4.50-5.90); RED CELL DISTRI WIDTH 12.3 % (0-14.5); WHITE BLOOD COUNT 17.1 10*3/uL (4.8-10.8)
[2020-05-19 23:22] LABS: ALKALINE PHOSPHATASE 88 U/L (45-117); BUN 17 mg/dl (7-24); CHLORIDE 107 mmol/L (98-107); LIPASE 70 U/L (73-393); POTASSIUM 3.3 mmol/L (3.5-5.1); SGOT/AST 28 IU/L (3-35); SGPT/ALT 25 U/L (12-78); SODIUM 138 mmol/L (136-145); TOTAL PROTEIN 6.7 gm/dL (6.4-8.2)
[2020-05-20 00:25] LABS: BILIRUBIN NEGATIVE (NEGATIVE); BLOOD 3+ (NEGATIVE); CLARITY SL CLOUDY (CLEAR); COLOR YELLOW (YELLOW); GLUCOSE NEGATIVE (NEGATIVE); KETONE 1+ (NEGATIVE); LEUKO ESTERASE NEGATIVE (NEGATIVE); NITRITE NEGATIVE (NEGATIVE); UROBILINOGEN 0.2 E.U./dl (0.2-1.0)
[2020-05-20 00:35] LABS: RBC 16-20 rbc/hpf (0-2)
== END 2020-05-20 05:53 | disposition short-term general hospital (02) ==
LOC: ED 21:35
PROVIDERS: Emergency Medicine
DX: S22.089A Unspecified fracture of T11-T12 vertebra, initial encounter for closed fracture (principal); J44.9 Chronic obstructive pulmonary disease, unspecified; E78.5 Hyperlipidemia, unspecified; I10 Essential (primary) hypertension; I25.2 Old myocardial infarction; I25.10 Atherosclerotic heart disease of native coronary artery without angina pectoris; Z79.899 Other long term (current) drug therapy; Z79.2 Long term (current) use of antibiotics; X58.XXXA Exposure to other specified factors, initial encounter; Y93.89 Activity, other specified; Y92.89 Other specified places as the place of occurrence of the external cause; Y99.8 Other external cause status

== ENCOUNTER 2020-05-26 15:56 | Emergency (ER) | payer MEDICARE ==
[~2020-05-26] VITALS: Ht 167.6 cm; Wt 68.0 kg
[2020-05-26 17:13] LABS: HEMATOCRIT 40.2 % (42.0-52.0); MEAN CELL VOLUME 96.4 fl (80.0-94.0); MEAN CORPUSCULAR HGB 32.1 pg (27.0-31.0); MEAN CORPUSCULAR HGB CONC 33.3 g/dl (33.0-37.0); MEAN PLATELET VOLUME 9.6 fl (9.6-12.3); PLATELET COUNT AUTOMATED 298 10*3/uL (130-400); RED BLOOD COUNT 4.17 10*6/uL (4.50-5.90); RED CELL DISTRI WIDTH 12.8 % (0-14.5); WHITE BLOOD COUNT 20.6 10*3/uL (4.8-10.8)
[2020-05-26 17:25] LABS: ACT PARTIAL THROMBO TIME 29.2 SECONDS (20.0-32.1)
[2020-05-26 17:27] LABS: ALKALINE PHOSPHATASE 118 U/L (45-117); BUN 19 mg/dl (7-24); CHLORIDE 108 mmol/L (98-107); CREATININE 0.92 mg/dL (0.70-1.30); POTASSIUM 3.7 mmol/L (3.5-5.1); SGOT/AST 16 IU/L (3-35); SGPT/ALT 34 U/L (12-78); SODIUM 140 mmol/L (136-145); TOTAL PROTEIN 6.5 gm/dL (6.4-8.2)
[2020-05-26 17:32] LABS: PLATELET SUFFICIENCY NORMAL (NORMAL); TOTAL CELLS COUNTED 100 #CELLS
[2020-05-26] MEDS ORDERED: ZOFRAN4 MG PO (18:44)
[2020-05-26] MEDS ORDERED: TYLENOL325 M1 PO (18:44)
== END 2020-05-26 18:56 | disposition home or self-care (01) ==
LOC: ED 15:56
PROVIDERS: Emergency Medicine
DX: R51 Headache (principal); R11.2 Nausea with vomiting, unspecified; D72.829 Elevated white blood cell count, unspecified; R70.0 Elevated erythrocyte sedimentation rate; J44.9 Chronic obstructive pulmonary disease, unspecified; E78.5 Hyperlipidemia, unspecified; I10 Essential (primary) hypertension; R79.1 Abnormal coagulation profile; Z79.899 Other long term (current) drug therapy; Z87.891 Personal history of nicotine dependence

== ENCOUNTER 2022-07-31 08:56 | Emergency (ER) | payer MEDICARE ==
[~2022-07-31] VITALS: Ht 167.6 cm; Wt 59.0 kg
[~2022-07-31 08:56] MED LIST changes: +TYLENOL325 M1 PO; +ZOFRAN4 MG PO
== END 2022-07-31 11:39 | disposition home or self-care (01) ==
LOC: ED 08:56
DX: N43.3 Hydrocele, unspecified (principal); K40.90 Unilateral inguinal hernia, without obstruction or gangrene, not specified as recurrent; Z79.899 Other long term (current) drug therapy; Z98.890 Other specified postprocedural states; Z87.891 Personal history of nicotine dependence

== ENCOUNTER → 2022-08-26 | Outpatient (CLI) | payer MEDICARE ==
[~2022-08-26] MED LIST changes: +AMITRIPTYLINE10 MG PO; +ATENOLOL25 MG PO; -ATENOLOL50 MG PO; +CAPTOPRIL25 MG PO
== END | disposition home or self-care (01) ==
LOC: LAB 11:39
PROVIDERS: ATTEND Surgery
DX: K40.90 Unilateral inguinal hernia, without obstruction or gangrene, not specified as recurrent (principal)

== ENCOUNTER → 2022-08-27 | Day surgery (SDC) | payer MEDICARE ==
[2022-08-24 13:37] VITALS: BP 133/92
[2022-08-26 11:35] LABS: BASO % 0.5 % (0.0-1.0); EOS # 0.1 10*3/uL (0.0-0.4); EOS % 1.8 % (1.0-4.0); HEMATOCRIT 44.3 % (42.0-52.0); LYMPH # 1.7 10*3/uL (1.3-4.4); LYMPH % 21.7 % (27.0-41.0); MEAN CELL VOLUME 97.8 fl (80.0-94.0); MEAN CORPUSCULAR HGB 33.1 pg (27.0-31.0); MEAN CORPUSCULAR HGB CONC 33.9 g/dl (33.0-37.0); MEAN PLATELET VOLUME 9.7 fl (9.6-12.3); MONO # 0.8 10*3/uL (0.1-1.0); MONO % 9.5 % (3.0-9.0); NEUT # 5.3 10*3/uL (2.3-7.9); NEUT % 66.1 % (47.0-73.0); PLATELET COUNT AUTOMATED 207 10*3/uL (130-400); RED BLOOD COUNT 4.53 10*6/uL (4.50-5.90); RED CELL DISTRI WIDTH 12.7 % (0-14.5); WHITE BLOOD COUNT 7.9 10*3/uL (4.8-10.8)
[2022-08-26 11:46] LABS: BUN 13 mg/dl (7-24); CHLORIDE 111 mmol/L (98-107); POTASSIUM 3.8 mmol/L (3.5-5.1); SODIUM 143 mmol/L (136-145)
[~2022-08-27] VITALS: Ht 167.6 cm; Wt 59.0 kg
== END | disposition home or self-care (01) ==
LOC: SDC 08-24 13:15
PROVIDERS: ATTEND Surgery
DX: K40.90 Unilateral inguinal hernia, without obstruction or gangrene, not specified as recurrent (principal); I10 Essential (primary) hypertension; J44.9 Chronic obstructive pulmonary disease, unspecified; I25.10 Atherosclerotic heart disease of native coronary artery without angina pectoris; Z86.73 Personal history of transient ischemic attack (TIA), and cerebral infarction without residual deficits; Z53.8 Procedure and treatment not carried out for other reasons

== ENCOUNTER → 2022-10-21 | Outpatient (CLI) | payer MEDICARE | END | disposition home or self-care (01) | LOC: CARD 09:30 | PROVIDERS: ATTEND Internal Medicine Cardiovascular Disease | DX: Z01.810 Encounter for preprocedural cardiovascular examination (principal); I51.7 Cardiomegaly ==

== ENCOUNTER → 2022-12-31 | Day surgery (SDC) | payer MEDICARE ==
[2022-12-28 13:35] VITALS: BP 131/71
[~2022-12-31] VITALS: Ht 167.6 cm; Wt 61.2 kg
[~2022-12-31] MED LIST changes: +COLACE100 MG PO; +HYDROCODONE-AC1 EAC1 PO; +ONDANSETRON HYDR4 M1 PO
[2022-12-31 10:26] VITALS: BP 131/76
[2022-12-31 11:22] VITALS: BP 137/98
[2022-12-31 11:37] VITALS: BP 127/84
[2022-12-31 11:53] VITALS: BP 126/73
[2022-12-31 12:07] VITALS: BP 141/72
[2022-12-31 12:22] VITALS: BP 137/98
== END | disposition home or self-care (01) ==
LOC: SDC 12-28 14:00
PROVIDERS: ATTEND Surgery
DX: K40.30 Unilateral inguinal hernia, with obstruction, without gangrene, not specified as recurrent (principal); I10 Essential (primary) hypertension; I25.10 Atherosclerotic heart disease of native coronary artery without angina pectoris; J44.9 Chronic obstructive pulmonary disease, unspecified; K21.9 Gastro-esophageal reflux disease without esophagitis; I25.2 Old myocardial infarction; Z86.73 Personal history of transient ischemic attack (TIA), and cerebral infarction without residual deficits; Z79.899 Other long term (current) drug therapy

== ENCOUNTER 2023-10-14 16:29 | Inpatient (IN) | payer OTHER ==
[~2023-10-14] VITALS: Ht 167.6 cm; Wt 55.5 kg
[2023-10-14 16:44] VITALS: BP 122/76
[2023-10-14 17:03] LABS: HEMATOCRIT 44.1 % (42.0-52.0); MEAN PLATELET VOLUME 9.7 fl (9.6-12.3); PLATELET COUNT AUTOMATED 314 10*3/uL (130-400); RED BLOOD COUNT 4.69 10*6/uL (4.50-5.90); RED CELL DISTRI WIDTH 12.8 % (0-14.5); WHITE BLOOD COUNT 18.4 10*3/uL (4.8-10.8)
[2023-10-14 17:05] LABS: MANUAL DIFF REFLEX YES
[2023-10-14 17:14] LABS: ACT PARTIAL THROMBO TIME 29.4 SECONDS (20.0-32.1)
[2023-10-14 17:37] LABS: ALKALINE PHOSPHATASE 96 U/L (46-116); BUN 23 mg/dl (9-23); CHLORIDE 106 mmol/L (98-107); LIPASE 32 U/L (12-53); POTASSIUM 3.5 mmol/L (3.4-5.1); SGPT/ALT 24 U/L (5-49); TOTAL PROTEIN 7.2 gm/dL (6.0-8.0)
[2023-10-14 17:39] LABS: CPK 2259 U/L (34-171)
[2023-10-14 17:42] LABS: BASOPHILS 1 % (0-1); TOTAL CELLS COUNTED 100 #CELLS
[2023-10-14 17:43] LABS: PLATELET SUFFICIENCY NORMAL (NORMAL)
[2023-10-14 20:43] VITALS: BP 108/70
[2023-10-14 23:07] LABS: BILIRUBIN Negative (Negative); BLOOD 3+ (Negative); CLARITY Turbid (Clear); COLOR Dark Yellow (Yellow); GLUCOSE Negative (Negative); KETONE Trace (Negative); LEUKO ESTERASE Trace (Negative); NITRITE Negative (Negative); PH 5.5 (4.5-8.0); SPECIFIC GRAVITY >= 1.030 (1.001-1.030)
[2023-10-14 23:56] LABS: BACTERIA 1+; RBC 16-20 rbc/hpf (0-2)
[2023-10-15 02:12] VITALS: BP 109/65
[2023-10-15 06:18] VITALS: BP 116/61
[2023-10-15 06:29] LABS: BASO % 0.2 % (0.0-1.0); EOS % 0.1 % (1.0-4.0); HEMATOCRIT 39.1 % (42.0-52.0); LYMPH # 1.1 10*3/uL (1.3-4.4); LYMPH % 8.1 % (27.0-41.0); MEAN CELL VOLUME 95.4 fl (80.0-94.0); MEAN CORPUSCULAR HGB 32.2 pg (27.0-31.0); MEAN CORPUSCULAR HGB CONC 33.8 g/dl (33.0-37.0); MEAN PLATELET VOLUME 9.8 fl (9.6-12.3); MONO # 1.1 10*3/uL (0.1-1.0); MONO % 8.1 % (3.0-9.0); NEUT # 11.2 10*3/uL (2.3-7.9); PLATELET COUNT AUTOMATED 259 10*3/uL (130-400); RED CELL DISTRI WIDTH 12.8 % (0-14.5); WHITE BLOOD COUNT 13.5 10*3/uL (4.8-10.8)
[2023-10-15 07:14] LABS: ALKALINE PHOSPHATASE 76 U/L (46-116); BUN 20 mg/dl (9-23); CHLORIDE 108 mmol/L (98-107); POTASSIUM 3.4 mmol/L (3.4-5.1); SGPT/ALT 26 U/L (5-49); TOTAL PROTEIN 6.1 gm/dL (6.0-8.0)
[2023-10-15 07:15] LABS: CPK 2096 U/L (34-171)
[2023-10-15 07:44] LABS: VITAMIN D, 25-HYDROXY 72.9 ng/mL (30-100)
[2023-10-15 07:49] VITALS: BP 118/64
[2023-10-15 10:31] VITALS: BP 112/64
[2023-10-15 15:17] VITALS: BP 108/61
[2023-10-15 20:00] VITALS: BP 119/57
[2023-10-16] VITALS: BP 116/72
[2023-10-16 05:23] LABS: BUN 18 mg/dl (9-23); CHLORIDE 111 mmol/L (98-107); POTASSIUM 3.7 mmol/L (3.4-5.1)
[2023-10-16 05:24] LABS: CPK 999 U/L (34-171)
[2023-10-16 06:18] LABS: BASO % 0.3 % (0.0-1.0); EOS # 0.1 10*3/uL (0.0-0.4); EOS % 0.9 % (1.0-4.0); HEMATOCRIT 38.9 % (42.0-52.0); LYMPH # 1.3 10*3/uL (1.3-4.4); LYMPH % 10.3 % (27.0-41.0); MEAN CELL VOLUME 96.5 fl (80.0-94.0); MEAN CORPUSCULAR HGB 31.3 pg (27.0-31.0); MEAN CORPUSCULAR HGB CONC 32.4 g/dl (33.0-37.0); MONO # 1.3 10*3/uL (0.1-1.0); MONO % 10.3 % (3.0-9.0); NEUT # 9.6 10*3/uL (2.3-7.9); NEUT % 77.6 % (47.0-73.0); PLATELET COUNT AUTOMATED 245 10*3/uL (130-400); RED BLOOD COUNT 4.03 10*6/uL (4.50-5.90); RED CELL DISTRI WIDTH 12.8 % (0-14.5); WHITE BLOOD COUNT 12.4 10*3/uL (4.8-10.8)
[2023-10-16 08:00] VITALS: BP 118/63
[2023-10-16 12:00] VITALS: BP 103/66
[2023-10-16 16:00] VITALS: BP 101/65
[2023-10-16 20:00] VITALS: BP 114/63
[2023-10-17] VITALS: BP 119/68
[2023-10-17 05:45] LABS: BUN 12 mg/dl (9-23); CHLORIDE 111 mmol/L (98-107); POTASSIUM 3.7 mmol/L (3.4-5.1)
[2023-10-17 06:12] LABS: BASO % 0.4 % (0.0-1.0); EOS # 0.2 10*3/uL (0.0-0.4); EOS % 2.4 % (1.0-4.0); HEMATOCRIT 38.1 % (42.0-52.0); LYMPH # 1.7 10*3/uL (1.3-4.4); LYMPH % 18.5 % (27.0-41.0); MEAN CELL VOLUME 96.7 fl (80.0-94.0); MEAN CORPUSCULAR HGB 31.5 pg (27.0-31.0); MEAN CORPUSCULAR HGB CONC 32.5 g/dl (33.0-37.0); MEAN PLATELET VOLUME 10.2 fl (9.6-12.3); MONO # 0.9 10*3/uL (0.1-1.0); MONO % 9.8 % (3.0-9.0); NEUT # 6.4 10*3/uL (2.3-7.9); NEUT % 68.4 % (47.0-73.0); PLATELET COUNT AUTOMATED 238 10*3/uL (130-400); RED BLOOD COUNT 3.94 10*6/uL (4.50-5.90); WHITE BLOOD COUNT 9.3 10*3/uL (4.8-10.8)
[2023-10-17 08:00] VITALS: BP 124/59
[2023-10-17 12:00] VITALS: BP 103/52
[2023-10-17 16:00] VITALS: BP 108/59
[2023-10-17 20:00] VITALS: BP 106/51
[2023-10-18] VITALS: BP 98/58
[2023-10-18 06:23] LABS: BUN 10 mg/dl (9-23); CHLORIDE 108 mmol/L (98-107); POTASSIUM 3.7 mmol/L (3.4-5.1)
[2023-10-18 06:34] LABS: BASO % 0.4 % (0.0-1.0); EOS # 0.2 10*3/uL (0.0-0.4); EOS % 1.8 % (1.0-4.0); HEMATOCRIT 40.8 % (42.0-52.0); LYMPH % 19.1 % (27.0-41.0); MEAN CELL VOLUME 97.8 fl (80.0-94.0); MEAN CORPUSCULAR HGB 31.7 pg (27.0-31.0); MEAN CORPUSCULAR HGB CONC 32.4 g/dl (33.0-37.0); MEAN PLATELET VOLUME 10.1 fl (9.6-12.3); MONO % 9.2 % (3.0-9.0); NEUT # 7.3 10*3/uL (2.3-7.9); PLATELET COUNT AUTOMATED 259 10*3/uL (130-400); RED BLOOD COUNT 4.17 10*6/uL (4.50-5.90); RED CELL DISTRI WIDTH 12.8 % (0-14.5); WHITE BLOOD COUNT 10.5 10*3/uL (4.8-10.8)
[2023-10-18 08:00] VITALS: BP 131/63
[2023-10-18 12:00] VITALS: BP 112/61
[2023-10-18 16:00] VITALS: BP 126/68
== END 2023-10-18 18:10 | DRG 564 ==
LOC: ED 16:29 → EDHOLD 19:37 → 4E 19:37
PROVIDERS: Physician Assistant Medical; Student in an Organized Health Care Education/Training Program; ADMIT Internal Medicine; ATTEND Internal Medicine
DX: T79.6XXA Traumatic ischemia of muscle, initial encounter (principal); N17.0 Acute kidney failure with tubular necrosis; E87.20 Acidosis, unspecified; I10 Essential (primary) hypertension; K46.9 Unspecified abdominal hernia without obstruction or gangrene; J44.9 Chronic obstructive pulmonary disease, unspecified; N40.0 Benign prostatic hyperplasia without lower urinary tract symptoms; Z66 Do not resuscitate; R73.9 Hyperglycemia, unspecified; E80.6 Other disorders of bilirubin metabolism; R74.01 Elevation of levels of liver transaminase levels; R80.9 Proteinuria, unspecified; E78.2 Mixed hyperlipidemia; S51.011A Laceration without foreign body of right elbow, initial encounter; W18.39XA Other fall on same level, initial encounter; Y93.89 Activity, other specified; Y92.098 Other place in other non-institutional residence as the place of occurrence of the external cause; Z79.899 Other long term (current) drug therapy; Z87.891 Personal history of nicotine dependence; Z82.49 Family history of ischemic heart disease and other diseases of the circulatory system; Z86.73 Personal history of transient ischemic attack (TIA), and cerebral infarction without residual deficits; I25.2 Old myocardial infarction; Y99.8 Other external cause status; Z51.5 Encounter for palliative care

== ENCOUNTER → 2023-12-08 | Outpatient (CLI) | payer OTHER ==
[~2023-12-08] MED LIST changes: +IOHEXOL 300 MG/ML 100 ML VIAL IV ONE
== END | disposition home or self-care (01) ==
LOC: CT 08:00 → LAB 08:01
PROVIDERS: ATTEND Surgery
DX: K76.0 Fatty (change of) liver, not elsewhere classified (principal); N40.0 Benign prostatic hyperplasia without lower urinary tract symptoms; K46.9 Unspecified abdominal hernia without obstruction or gangrene; J43.9 Emphysema, unspecified; I25.10 Atherosclerotic heart disease of native coronary artery without angina pectoris; K86.1 Other chronic pancreatitis; J98.4 Other disorders of lung; M43.8X4 Other specified deforming dorsopathies, thoracic region; I70.0 Atherosclerosis of aorta

== ENCOUNTER 2024-09-10 16:26 | Inpatient (IN) | payer OTHER ==
[~2024-09-10] VITALS: Ht 167.6 cm; Wt 56.9 kg
[~2024-09-10 16:26] MED LIST changes: -IOHEXOL 300 MG/ML 100 ML VIAL IV ONE
[2024-09-10 16:32] VITALS: BP 142/94
[2024-09-10 16:49] LABS: BASO # 0.1 10*3/uL (0.0-0.1); BASO % 0.6 % (0.0-1.0); EOS # 0.2 10*3/uL (0.0-0.4); EOS % 1.8 % (1.0-4.0); MEAN CELL VOLUME 97.7 fl (80.0-94.0); MEAN CORPUSCULAR HGB 31.8 pg (27.0-31.0); MEAN CORPUSCULAR HGB CONC 32.6 g/dl (33.0-37.0); MEAN PLATELET VOLUME 9.6 fl (9.6-12.3); MONO # 0.8 10*3/uL (0.1-1.0); MONO % 9.5 % (3.0-9.0); NEUT # 6.2 10*3/uL (2.3-7.9); NEUT % 70.7 % (47.0-73.0); PLATELET COUNT AUTOMATED 252 10*3/uL (130-400); RED CELL DISTRI WIDTH 12.5 % (0-14.5); WHITE BLOOD COUNT 8.8 10*3/uL (4.8-10.8)
[2024-09-10] MEDS ORDERED: RIVASTIGMINE TAR3 M1 PO (16:50)
[2024-09-10] MEDS ORDERED: MIRTAZAPINE15 M2 PO (16:50)
[2024-09-10 17:05] LABS: BUN 12 mg/dl (9-23); CHLORIDE 108 mmol/L (98-107); POTASSIUM 3.4 mmol/L (3.4-5.1)
[2024-09-10] MEDS ORDERED: AZITHROMYCIN 250 MG TAB PO ONE (17:20)
[2024-09-10] MEDS ORDERED: Ceftriaxone Sodium 1 GM/10 ML SYR IV ONE (17:20)
[2024-09-10] MEDS ORDERED: Magnesium Hydroxide 30 ML UDC PO PRN (17:55)
[2024-09-10] MEDS ORDERED: BISACODYL 10 MG SUPP R PRN (17:55)
[2024-09-10] MEDS ORDERED: BISACODYL 5 MG TAB PO PRN (17:55)
[2024-09-10] MEDS ORDERED: ACETAMINOPHEN 325 MG TAB PO PRN (17:55)
[2024-09-10] MEDS ORDERED: Albuterol Sulf/Ipratropium 3 ML VIAL NEB SCH (18:00)
[2024-09-10] MEDS ORDERED: methylPREDNISolone sod succ 20 MG IV SCH (18:05)
[2024-09-10 18:30] VITALS: BP 130/71
[2024-09-10] MEDS ORDERED: methylPREDNISolone sod succ 40 MG VIAL IV SCH (18:30)
[2024-09-10 19:29] VITALS: BP 140/68
[2024-09-10] MEDS ORDERED: Clopidogrel Hydrogen Sulfate 75 MG TAB PO SCH (22:00)
[2024-09-10] MEDS ORDERED: FINASTERIDE 5 MG TAB PO SCH (22:00)
[2024-09-10] MEDS ORDERED: Vitamin D 1,000 IU TAB (25 MCG) PO SCH (22:00)
[2024-09-10] MEDS ORDERED: Dextromethorphan Hydrobromid 1 TAB TAB PO SCH (22:00)
[2024-09-10] MEDS ORDERED: Mirtazapine 15 MG TAB PO SCH (22:00)
[2024-09-10] MEDS ORDERED: Rivastigmine Tartrate 3 MG CAP PO SCH (22:00)
[2024-09-10 22:30] VITALS: BP 120/67
[2024-09-11 06:18] LABS: HEMATOCRIT 41.8 % (42.0-52.0); MEAN PLATELET VOLUME 10.2 fl (9.6-12.3); PLATELET COUNT AUTOMATED 251 10*3/uL (130-400); RED BLOOD COUNT 4.31 10*6/uL (4.50-5.90); RED CELL DISTRI WIDTH 12.5 % (0-14.5); WHITE BLOOD COUNT 6.2 10*3/uL (4.8-10.8)
[2024-09-11 06:28] LABS: MANUAL DIFF REFLEX YES
[2024-09-11 06:31] LABS: ALKALINE PHOSPHATASE 130 U/L (46-116); BUN 12 mg/dl (9-23); CHLORIDE 109 mmol/L (98-107); CHOLESTEROL 134 mg/dL (<200); FREE T4 0.85 ng/dl (0.89-1.76); LDL CHOLESTEROL 80 mg/dL (9-159); POTASSIUM 3.7 mmol/L (3.4-5.1); SGPT/ALT 9 U/L (5-49); TOTAL PROTEIN 6.9 gm/dL (6.0-8.0); TRIGLYCERIDES 61 mg/dl (<150)
[2024-09-11 07:11] LABS: PLATELET SUFFICIENCY NORMAL (NORMAL); TOTAL CELLS COUNTED 100 #CELLS
[2024-09-11 08:00] VITALS: BP 100/50
[2024-09-11 08:06] LABS: VITAMIN D, 25-HYDROXY 68.1 ng/mL (30-100)
[2024-09-11] MEDS ORDERED: AZITHROMYCIN 250 MG TAB PO SCH (10:00)
[2024-09-11] MEDS ORDERED: Enoxaparin Sodium 40 MG/0.4 ML SYR SC SCH (10:00)
[2024-09-11] MEDS ORDERED: Pantoprazole Sodium 20 MG TAB PO SCH (10:00)
[2024-09-11 12:18] VITALS: BP 130/60
[2024-09-11] MEDS ORDERED: Ceftriaxone Sodium 1 GM in SYRINGE INFUSION 10 ML IV SCH (17:00)
[2024-09-11 18:00] VITALS: BP 104/60
[2024-09-11] MEDS ORDERED: ATORVASTATIN CALCIUM 10 MG TAB PO SCH (18:00)
[2024-09-11 20:00] VITALS: BP 120/56
[2024-09-12] VITALS: BP 120/71
[2024-09-12 06:27] LABS: BUN 16 mg/dl (9-23); CHLORIDE 109 mmol/L (98-107); POTASSIUM 3.7 mmol/L (3.4-5.1)
[2024-09-12 06:32] LABS: HEMATOCRIT 38.2 % (42.0-52.0); MEAN CELL VOLUME 95.7 fl (80.0-94.0); MEAN CORPUSCULAR HGB 32.6 pg (27.0-31.0); MEAN PLATELET VOLUME 10.6 fl (9.6-12.3); PLATELET COUNT AUTOMATED 261 10*3/uL (130-400); RED BLOOD COUNT 3.99 10*6/uL (4.50-5.90); WHITE BLOOD COUNT 12.3 10*3/uL (4.8-10.8)
[2024-09-12 06:37] LABS: MANUAL DIFF REFLEX YES
[2024-09-12 07:31] LABS: TOTAL CELLS COUNTED 100 #CELLS
[2024-09-12 07:32] LABS: PLATELET SUFFICIENCY NORMAL (NORMAL); POLYCHROMASIA SLIGHT
[2024-09-12 08:00] VITALS: BP 143/69
[2024-09-12] MEDS ORDERED: ZITHROMAX250 MG PO (08:41)
[2024-09-12 12:00] VITALS: BP 131/75
== END 2024-09-12 16:12 | DRG 178 ==
LOC: ED 16:26 → EDHOLD 17:53 → 4E 17:53
PROVIDERS: Emergency Medicine; Student in an Organized Health Care Education/Training Program; ADMIT Internal Medicine; ATTEND Internal Medicine
DX: J69.0 Pneumonitis due to inhalation of food and vomit (principal); J44.1 Chronic obstructive pulmonary disease with (acute) exacerbation; Z66 Do not resuscitate; N40.0 Benign prostatic hyperplasia without lower urinary tract symptoms; E87.8 Other disorders of electrolyte and fluid balance, not elsewhere classified; N40.1 Benign prostatic hyperplasia with lower urinary tract symptoms; E78.5 Hyperlipidemia, unspecified; R73.9 Hyperglycemia, unspecified; E83.39 Other disorders of phosphorus metabolism; I10 Essential (primary) hypertension; Z87.891 Personal history of nicotine dependence; Z82.49 Family history of ischemic heart disease and other diseases of the circulatory system; Z51.5 Encounter for palliative care; Z86.73 Personal history of transient ischemic attack (TIA), and cerebral infarction without residual deficits

== ENCOUNTER 2024-09-16 11:47 | Emergency (ER) | payer OTHER ==
[~2024-09-16] VITALS: Ht 167.6 cm; Wt 59.0 kg
[~2024-09-16 11:47] MED LIST changes: +MIRTAZAPINE15 M2 PO; +RIVASTIGMINE TAR3 M1 PO; +ZITHROMAX250 MG PO
[2024-09-16] MEDS ORDERED: Albuterol Sulf/Ipratropium 3 ML VIAL NEB ONE (12:55)
[2024-09-16 13:11] LABS: HEMATOCRIT 42.6 % (42.0-52.0); MEAN CELL VOLUME 97.7 fl (80.0-94.0); MEAN CORPUSCULAR HGB 32.8 pg (27.0-31.0); MEAN CORPUSCULAR HGB CONC 33.6 g/dl (33.0-37.0); MEAN PLATELET VOLUME 9.5 fl (9.6-12.3); PLATELET COUNT AUTOMATED 283 10*3/uL (130-400); RED BLOOD COUNT 4.36 10*6/uL (4.50-5.90); RED CELL DISTRI WIDTH 12.6 % (0-14.5); WHITE BLOOD COUNT 11.9 10*3/uL (4.8-10.8)
[2024-09-16 13:17] LABS: MANUAL DIFF REFLEX YES
[2024-09-16 13:26] LABS: ACT PARTIAL THROMBO TIME 29.9 SECONDS (20.0-32.1)
[2024-09-16 13:30] LABS: BUN 17 mg/dl (9-23); CHLORIDE 111 mmol/L (98-107); POTASSIUM 3.3 mmol/L (3.4-5.1)
[2024-09-16 13:34] LABS: PLATELET SUFFICIENCY NORMAL (NORMAL); TOTAL CELLS COUNTED 100 #CELLS
[2024-09-16] MEDS ORDERED: POTASSIUM CHLORIDE 20 MEQ TAB PO ONE (13:55)
[2024-09-16] MEDS ORDERED: PREDNISONE20 M1 PO (16:07)
[2024-09-16] MEDS ORDERED: MUCINEX1200 M1 PO (16:08)
== END 2024-09-16 18:35 | disposition home or self-care (01) ==
LOC: ED 11:47
PROVIDERS: Internal Medicine
DX: J44.9 Chronic obstructive pulmonary disease, unspecified (principal); Z20.822 Contact with and (suspected) exposure to COVID-19; I10 Essential (primary) hypertension; I25.2 Old myocardial infarction; I25.10 Atherosclerotic heart disease of native coronary artery without angina pectoris; K21.9 Gastro-esophageal reflux disease without esophagitis; M19.90 Unspecified osteoarthritis, unspecified site; Z98.890 Other specified postprocedural states; Z87.891 Personal history of nicotine dependence

== ENCOUNTER 2024-10-14 11:53 | Inpatient (IN) | payer OTHER ==
[~2024-10-14] VITALS: Ht 170.1 cm; Wt 55.0 kg
[~2024-10-14 11:53] MED LIST changes: +MUCINEX1200 M1 PO; +PREDNISONE20 M1 PO
[2024-10-14 12:28] VITALS: BP 102/63
[2024-10-14] MEDS ORDERED: LIDOCAINE PAIN1 EACH T (12:37)
[2024-10-14] MEDS ORDERED: GERI-TUSSI100 MG/5 M PO (12:37)
[2024-10-14] MEDS ORDERED: PAIN RELIEVER325 MG PO (12:38)
[2024-10-14 13:31] LABS: BASO % 0.3 % (0.0-1.0); EOS % 0.1 % (1.0-4.0); HEMATOCRIT 47.2 % (42.0-52.0); MEAN CELL VOLUME 99.2 fl (80.0-94.0); MEAN CORPUSCULAR HGB 32.1 pg (27.0-31.0); MEAN CORPUSCULAR HGB CONC 32.4 g/dl (33.0-37.0); MEAN PLATELET VOLUME 9.5 fl (9.6-12.3); MONO # 0.7 10*3/uL (0.1-1.0); MONO % 10.2 % (3.0-9.0); NEUT # 5.9 10*3/uL (2.3-7.9); NEUT % 81.8 % (47.0-73.0); PLATELET COUNT AUTOMATED 212 10*3/uL (130-400); RED BLOOD COUNT 4.76 10*6/uL (4.50-5.90); RED CELL DISTRI WIDTH 13.1 % (0-14.5); WHITE BLOOD COUNT 7.2 10*3/uL (4.8-10.8)
[2024-10-14 13:49] LABS: ACT PARTIAL THROMBO TIME 33.9 SECONDS (20.0-32.1)
[2024-10-14 13:52] LABS: ALKALINE PHOSPHATASE 142 U/L (46-116); BUN 11 mg/dl (9-23); CHLORIDE 106 mmol/L (98-107); POTASSIUM 3.6 mmol/L (3.4-5.1); TOTAL PROTEIN 7.6 gm/dL (6.0-8.0)
[2024-10-14 13:53] LABS: SGPT/ALT < 7 U/L (5-49)
[2024-10-14] MEDS ORDERED: ASPIRIN, CHEWABLE 81 MG TAB PO ONE (13:55)
[2024-10-14] MEDS ORDERED: HEPARIN SODIUM 250 ML IV SCH (13:55)
[2024-10-14] MEDS ORDERED: methylPREDNISolone sod succ 125 MG VIAL IV ONE (14:30)
[2024-10-14] MEDS ORDERED: AZITHROMYCIN 250 MG TAB PO ONE (14:30)
[2024-10-14] MEDS ORDERED: Ceftriaxone Sodium 1 GM/10 ML SYR IV ONE (14:30)
[2024-10-14 15:27] VITALS: BP 123/73
[2024-10-14] MEDS ORDERED: Metoprolol Tartrate 5 MG/5 ML VIAL IV ONE (17:20)
[2024-10-14] MEDS ORDERED: Ondansetron Hydrochloride 4 MG/2 ML VIAL IV PRN (17:35)
[2024-10-14] MEDS ORDERED: MORPHINE Sulfate 2 MG/ML SYR IV PRN (17:35)
[2024-10-14] MEDS ORDERED: SODIUM CHLORIDE 0.9% 100 ML BAG IV ONE (17:35)
[2024-10-14] MEDS ORDERED: BISACODYL 10 MG SUPP R PRN (17:35)
[2024-10-14] MEDS ORDERED: TEMAZEPAM 15 MG CAP PO PRN (17:35)
[2024-10-14] MEDS ORDERED: ACETAMINOPHEN 650 MG SUPP R PRN (17:35)
[2024-10-14] MEDS ORDERED: Magnesium Hydroxide 30 ML UDC PO PRN (17:35)
[2024-10-14] MEDS ORDERED: Acetaminophen/Hydrocodone 5 MG/325 MG TABLET PO PRN (17:35)
[2024-10-14] MEDS ORDERED: BISACODYL 5 MG TAB PO PRN (17:35)
[2024-10-14] MEDS ORDERED: ACETAMINOPHEN 325 MG TAB PO PRN (17:35)
[2024-10-14] MEDS ORDERED: IOHEXOL 350 MG/ML 100 ML VIAL IV ONE (17:35)
[2024-10-14 17:48] VITALS: BP 107/61
[2024-10-14 18:11] VITALS: BP 105/64
[2024-10-14] MEDS ORDERED: Levalbuterol Hydrochloride 1.25 MG VIAL NEB PRN (18:35)
[2024-10-14] MEDS ORDERED: FUROSEMIDE 20 MG/2 ML VIAL IV ONE (18:40)
[2024-10-14 18:52] VITALS: BP 105/61
[2024-10-14] MEDS ORDERED: methylPREDNISolone sod succ 40 MG VIAL IV SCH (22:00)
[2024-10-14] MEDS ORDERED: GUAIFENESIN/DEXTROMETHORPHAN 10 ML UDC PO PRN (22:40)
[2024-10-15] VITALS: BP 126/45
[2024-10-15 01:45] VITALS: BP 133/69
[2024-10-15 05:28] LABS: BUN 14 mg/dl (9-23); CHLORIDE 106 mmol/L (98-107); FREE T4 0.92 ng/dl (0.89-1.76); POTASSIUM 3.4 mmol/L (3.4-5.1)
[2024-10-15 06:39] LABS: HEMATOCRIT 42.8 % (42.0-52.0); MEAN CELL VOLUME 97.3 fl (80.0-94.0); MEAN CORPUSCULAR HGB CONC 33.9 g/dl (33.0-37.0); MEAN PLATELET VOLUME 10.2 fl (9.6-12.3); PLATELET COUNT AUTOMATED 199 10*3/uL (130-400); RED CELL DISTRI WIDTH 13.1 % (0-14.5); WHITE BLOOD COUNT 7.4 10*3/uL (4.8-10.8)
[2024-10-15 06:41] LABS: MANUAL DIFF REFLEX YES
[2024-10-15 07:28] LABS: PLATELET SUFFICIENCY NORMAL (NORMAL); TOTAL CELLS COUNTED 100 #CELLS
[2024-10-15 07:29] LABS: BURR CELLS FEW
[2024-10-15 08:00] VITALS: BP 107/70
[2024-10-15] MEDS ORDERED: AZITHROMYCIN 250 ML IV SCH (10:00)
[2024-10-15] MEDS ORDERED: Rivastigmine Tartrate 3 MG CAP PO SCH (10:00)
[2024-10-15] MEDS ORDERED: ASPIRIN ENTERIC COATED 81 MG TAB PO SCH (10:00)
[2024-10-15] MEDS ORDERED: LIDOCAINE 4% PATCH T SCH (10:00)
[2024-10-15] MEDS ORDERED: Pantoprazole Sodium 20 MG TAB PO SCH (10:00)
[2024-10-15 12:00] VITALS: BP 120/72
[2024-10-15 16:00] VITALS: BP 128/68
[2024-10-15] MEDS ORDERED: Ceftriaxone Sodium 1 GM in SYRINGE INFUSION 10 ML IV SCH (16:00)
[2024-10-15] MEDS ORDERED: ATORVASTATIN CALCIUM 10 MG TAB PO SCH (18:00)
[2024-10-15] MEDS ORDERED: ATORVASTATIN CALCIUM 40 MG TABLET PO SCH (18:00)
[2024-10-15 20:00] VITALS: BP 120/79
[2024-10-15] MEDS ORDERED: Clopidogrel Hydrogen Sulfate 75 MG TAB PO SCH (22:00)
[2024-10-15] MEDS ORDERED: Mirtazapine 15 MG TAB PO SCH (22:00)
[2024-10-15] MEDS ORDERED: FINASTERIDE 5 MG TAB PO SCH (22:00)
[2024-10-15] MEDS ORDERED: METOPROLOL SUCCINATE XR 25 MG TAB PO SCH (22:25)
[2024-10-16] VITALS: BP 128/84
[2024-10-16 06:08] LABS: BILIRUBIN Negative (Negative); BLOOD Negative (Negative); CLARITY Clear (Clear); COLOR Yellow (Yellow); GLUCOSE Negative (Negative); KETONE Negative (Negative); LEUKO ESTERASE Negative (Negative); NITRITE Negative (Negative); PH 5.5 (4.5-8.0); UROBILINOGEN 0.2 E.U./dl (0.0-1.0)
[2024-10-16 06:22] LABS: BACTERIA 1+; WBC 0-2 wbc/hpf (0-5)
[2024-10-16 06:42] LABS: BUN 18 mg/dl (9-23); CHLORIDE 108 mmol/L (98-107); POTASSIUM 4.3 mmol/L (3.4-5.1)
[2024-10-16 07:02] LABS: HEMATOCRIT 43.7 % (42.0-52.0); MANUAL DIFF REFLEX YES; MEAN CELL VOLUME 98.4 fl (80.0-94.0); MEAN CORPUSCULAR HGB 32.9 pg (27.0-31.0); MEAN CORPUSCULAR HGB CONC 33.4 g/dl (33.0-37.0); MEAN PLATELET VOLUME 10.2 fl (9.6-12.3); PLATELET COUNT AUTOMATED 214 10*3/uL (130-400); RED BLOOD COUNT 4.44 10*6/uL (4.50-5.90); WHITE BLOOD COUNT 16.8 10*3/uL (4.8-10.8)
[2024-10-16 07:39] LABS: BURR CELLS FEW; OVALOCYTES FEW; PLATELET SUFFICIENCY NORMAL (NORMAL); POLYCHROMASIA SLIGHT; TOTAL CELLS COUNTED 100 #CELLS
[2024-10-16 08:00] VITALS: BP 130/70
[2024-10-16 12:00] VITALS: BP 106/62
[2024-10-16 16:00] VITALS: BP 119/69
[2024-10-16 20:00] VITALS: BP 121/63
[2024-10-17] VITALS: BP 129/64
[2024-10-17 06:09] LABS: HEMATOCRIT 43.2 % (42.0-52.0); MEAN CORPUSCULAR HGB 32.2 pg (27.0-31.0); MEAN CORPUSCULAR HGB CONC 32.9 g/dl (33.0-37.0); MEAN PLATELET VOLUME 10.2 fl (9.6-12.3); PLATELET COUNT AUTOMATED 216 10*3/uL (130-400); RED BLOOD COUNT 4.41 10*6/uL (4.50-5.90); RED CELL DISTRI WIDTH 13.1 % (0-14.5); WHITE BLOOD COUNT 20.3 10*3/uL (4.8-10.8)
[2024-10-17 06:12] LABS: MANUAL DIFF REFLEX YES
[2024-10-17 06:30] LABS: PLATELET SUFFICIENCY NORMAL (NORMAL); TOTAL CELLS COUNTED 100 #CELLS
[2024-10-17 06:31] LABS: BURR CELLS FEW; POLYCHROMASIA SLIGHT
[2024-10-17 06:41] LABS: BUN 19 mg/dl (9-23); CHLORIDE 107 mmol/L (98-107); POTASSIUM 3.9 mmol/L (3.4-5.1)
[2024-10-17 08:00] VITALS: BP 159/92
[2024-10-17] MEDS ORDERED: Enoxaparin Sodium 40 MG/0.4 ML SYR SC SCH (10:00)
[2024-10-17] MEDS ORDERED: ATORVASTATIN CA40 M1 PO (11:11)
[2024-10-17] MEDS ORDERED: METOPROLOL SUCC25 M2 PO (11:11)
[2024-10-17] MEDS ORDERED: XARE20MG PO (11:11)
[2024-10-17] MEDS ORDERED: ZITHROMAX250 MG PO (11:11)
[2024-10-17] MEDS ORDERED: PREDNISONE10 MG PO (11:11)
[2024-10-18] MEDS ORDERED: methylPREDNISolone sod succ 40 MG VIAL IV SCH (10:00)
== END 2024-10-17 13:30 | DRG 280 ==
LOC: ED 11:53 → 4E 16:51 → EDHOLD 16:51 → 4E 23:55
PROVIDERS: Internal Medicine; Student in an Organized Health Care Education/Training Program; ADMIT Internal Medicine; ATTEND Internal Medicine
DX: I11.0 Hypertensive heart disease with heart failure (principal); I50.43 Acute on chronic combined systolic (congestive) and diastolic (congestive) heart failure; I21.A1 Myocardial infarction type 2; J15.5 Pneumonia due to Escherichia coli; J44.1 Chronic obstructive pulmonary disease with (acute) exacerbation; E87.20 Acidosis, unspecified; J44.0 Chronic obstructive pulmonary disease with (acute) lower respiratory infection; Z66 Do not resuscitate; J43.9 Emphysema, unspecified; I25.10 Atherosclerotic heart disease of native coronary artery without angina pectoris; R73.9 Hyperglycemia, unspecified; E78.5 Hyperlipidemia, unspecified; N40.0 Benign prostatic hyperplasia without lower urinary tract symptoms; I48.0 Paroxysmal atrial fibrillation; Z87.891 Personal history of nicotine dependence; Z82.49 Family history of ischemic heart disease and other diseases of the circulatory system; Z79.899 Other long term (current) drug therapy; Z79.1 Long term (current) use of non-steroidal anti-inflammatories (NSAID); Z51.5 Encounter for palliative care

== ENCOUNTER → 2024-11-14 | Outpatient (CLI) | payer OTHER ==
[~2024-11-14] MED LIST changes: +ATORVASTATIN CA40 M1 PO; +GERI-TUSSI100 MG/5 M PO; +LIDOCAINE PAIN1 EACH T; +METOPROLOL SUCC25 M2 PO; +PAIN RELIEVER325 MG PO; +Regadenoson 0.4 MG/5 ML SYR IV ONE; +Technetium Tc 99M Tetrofosmi 0.23 MG KIT IJ SCH; +XARE20MG PO
== END | disposition home or self-care (01) ==
LOC: CARD 11-03 10:00
PROVIDERS: ATTEND Internal Medicine Cardiovascular Disease
DX: I25.9 Chronic ischemic heart disease, unspecified (principal); R06.02 Shortness of breath; I25.10 Atherosclerotic heart disease of native coronary artery without angina pectoris; I48.91 Unspecified atrial fibrillation; I45.10 Unspecified right bundle-branch block

== ENCOUNTER 2025-06-29 00:33 | Emergency (ER) | payer OTHER ==
[~2025-06-29] VITALS: Ht 170.2 cm; Wt 53.1 kg
[~2025-06-29 00:33] MED LIST changes: +AMOX-CLAV 875-1 EACH PO; +AVPAK AZITHROM250 M1 PO; +FUROSEMIDE40 MG PO; +MUCUS RELIEF E600 MG PO; +NATURE'S BLEND F1 MG PO; +POTASSIUM CHLO20 ME4 PO; -Regadenoson 0.4 MG/5 ML SYR IV ONE; -Technetium Tc 99M Tetrofosmi 0.23 MG KIT IJ SCH
[2025-06-29 00:58] LABS: BASO # 0.0 10*3/uL (0.0-0.1); BASO % 0.3 % (0.0-1.0); EOS # 0.2 10*3/uL (0.0-0.4); EOS % 1.5 % (1.0-4.0); MEAN CELL VOLUME 94.4 fl (80.0-94.0); MEAN CORPUSCULAR HGB 31.7 pg (27.0-31.0); MEAN PLATELET VOLUME 8.7 fl (9.6-12.3); MONO # 1.3 10*3/uL (0.1-1.0); MONO % 10.8 % (3.0-9.0); NEUT # 8.7 10*3/uL (2.3-7.9); NEUT % 72.8 % (47.0-73.0); NUCLEATED RED BLOOD CELL 0.0 % (0.0-0.0); NUCLEATED RED BLOOD CELL 0.0 10*3/uL (0.0-0.0); PLATELET COUNT AUTOMATED 378 10*3/uL (130-400); RED CELL DISTRI WIDTH 12.2 % (0-14.5)
[2025-06-29 01:21] LABS: BUN 10 mg/dl (9-23); SGPT/ALT 55 U/L (5-49)
[2025-06-29 05:23] LABS: BILIRUBIN Negative (Negative); BLOOD Negative (Negative); CLARITY Clear (Clear); COLOR Yellow (Yellow); KETONE Negative (Negative); LEUKO ESTERASE Negative (Negative); NITRITE Negative (Negative); PH 6.0 (4.5-8.0); SPECIFIC GRAVITY 1.015 (1.001-1.030); UROBILINOGEN 1.0 E.U./dl (0.0-1.0)
[2025-06-29 06:02] LABS: EPITHELIAL CELLS 0-2
[2025-06-29] MEDS ORDERED: LEVOFLOXACIN 750 MG TAB PO ONE (06:05)
[2025-06-29] MEDS ORDERED: POTASSIUM CHLORIDE 20 MEQ TAB PO ONE (06:20)
== END 2025-06-29 06:52 ==
LOC: ED 00:33
PROVIDERS: Internal Medicine
DX: R91.8 Other nonspecific abnormal finding of lung field (principal); E87.6 Hypokalemia; D53.9 Nutritional anemia, unspecified; E44.0 Moderate protein-calorie malnutrition; K59.00 Constipation, unspecified; R74.01 Elevation of levels of liver transaminase levels; I25.2 Old myocardial infarction; Z79.899 Other long term (current) drug therapy; Z98.890 Other specified postprocedural states; Z87.891 Personal history of nicotine dependence

== ENCOUNTER 2025-07-11 23:08 | Emergency (ER) | payer OTHER ==
[~2025-07-11] VITALS: Ht 172.7 cm; Wt 59.4 kg
== END 2025-07-12 03:00 ==
LOC: ED 23:08
DX: S30.0XXA Contusion of lower back and pelvis, initial encounter (principal); S00.93XA Contusion of unspecified part of head, initial encounter; M25.551 Pain in right hip; I25.2 Old myocardial infarction; Z79.899 Other long term (current) drug therapy; Z98.890 Other specified postprocedural states; Z87.891 Personal history of nicotine dependence; W18.39XA Other fall on same level, initial encounter; Y93.89 Activity, other specified; Y92.128 Other place in nursing home as the place of occurrence of the external cause; Y99.8 Other external cause status

== ENCOUNTER 2025-07-18 13:52 | Emergency (ER) | payer OTHER ==
[~2025-07-18] VITALS: Ht 165.1 cm; Wt 52.2 kg
[2025-07-18] MEDS ORDERED: PREDNISONE50 MG PO (14:05)
[2025-07-18] MEDS ORDERED: HYDROCODONE-AC1 EAC1 PO (14:09)
[2025-07-18] MEDS ORDERED: OXYCODONE HCL (IR) 5 MG TAB PO ONE (14:30)
[2025-07-18] MEDS ORDERED: METHOCARBAMOL 500 MG TAB PO ONE (14:30)
[2025-07-18] MEDS ORDERED: METHOCARBAMOL750 M1 PO (16:06)
[2025-07-23] MEDS ORDERED: CALMOSEPTINE O3.5 GM T (23:53)
[2025-07-24] MEDS ORDERED: GERI TUSSIN DM PO
[2025-07-24] MEDS ORDERED: [UNRECOGNIZED DRUG - OTHER] PO (00:02)
[2025-07-24] MEDS ORDERED: Ipratropium Brom3 ML INH (00:03)
[2025-07-24] MEDS ORDERED: Ondansetron4 MG PO (00:04)
[2025-07-24] MEDS ORDERED: SSD25 GM T (00:06)
== END 2025-07-18 17:49 | disposition home or self-care (01) ==
LOC: ED 13:52
DX: M54.50 Low back pain, unspecified (principal); I10 Essential (primary) hypertension; I25.2 Old myocardial infarction; J44.9 Chronic obstructive pulmonary disease, unspecified; I25.10 Atherosclerotic heart disease of native coronary artery without angina pectoris; K21.9 Gastro-esophageal reflux disease without esophagitis; M19.90 Unspecified osteoarthritis, unspecified site; Z87.891 Personal history of nicotine dependence; Z98.890 Other specified postprocedural states

== ENCOUNTER 2025-08-08 20:07 | Emergency (ER) | payer OTHER ==
[~2025-08-08] VITALS: Wt 57.6 kg
[~2025-08-08 20:07] MED LIST changes: +CALMOSEPTINE O3.5 GM T; +GERI TUSSIN DM PO; +Ipratropium Brom3 ML INH; +METHOCARBAMOL750 M1 PO; +Ondansetron4 MG PO; +PREDNISONE50 MG PO; +SSD25 GM T; +[UNRECOGNIZED DRUG - OTHER] PO
[2025-08-08] MEDS ORDERED: Acetaminophen/Oxycodone 5 MG/325 MG TABLET PO ONE (20:15)
== END 2025-08-08 21:38 | disposition home or self-care (01) ==
LOC: ED 20:07
DX: S09.90XA Unspecified injury of head, initial encounter (principal); I10 Essential (primary) hypertension; I25.2 Old myocardial infarction; J44.9 Chronic obstructive pulmonary disease, unspecified; I25.10 Atherosclerotic heart disease of native coronary artery without angina pectoris; K21.9 Gastro-esophageal reflux disease without esophagitis; M19.90 Unspecified osteoarthritis, unspecified site; Z87.891 Personal history of nicotine dependence; Z98.890 Other specified postprocedural states; W19.XXXA Unspecified fall, initial encounter; Y93.89 Activity, other specified; Y92.89 Other specified places as the place of occurrence of the external cause; Y99.8 Other external cause status

== ENCOUNTER 2025-09-27 19:55 | Inpatient (IN) | payer OTHER ==
[~2025-09-27] VITALS: Ht 160 cm; Wt 49.6 kg
[2025-09-27 20:07] VITALS: BP 99/46
[2025-09-27 20:24] LABS: BASO # 0.1 10*3/uL (0.0-0.1); BASO % 0.4 % (0.0-1.0); EOS # 0.0 10*3/uL (0.0-0.4); EOS % 0.4 % (1.0-4.0); MEAN CELL VOLUME 96.9 fl (80.0-94.0); MEAN CORPUSCULAR HGB 31.7 pg (27.0-31.0); MEAN PLATELET VOLUME 9.4 fl (9.6-12.3); MONO # 1.0 10*3/uL (0.1-1.0); MONO % 8.6 % (3.0-9.0); NEUT # 9.4 10*3/uL (2.3-7.9); NEUT % 82.9 % (47.0-73.0); NUCLEATED RED BLOOD CELL 0.0 % (0.0-0.0); NUCLEATED RED BLOOD CELL 0.0 10*3/uL (0.0-0.0); PLATELET COUNT AUTOMATED 309 10*3/uL (130-400); RED CELL DISTRI WIDTH 13.3 % (0-14.5)
[2025-09-27 20:49] LABS: BUN 12 mg/dl (9-23)
[2025-09-27] MEDS ORDERED: Ondansetron Hydrochloride 4 MG/2 ML VIAL IV PRN (23:00)
[2025-09-27] MEDS ORDERED: BISACODYL 10 MG SUPP R PRN (23:00)
[2025-09-27] MEDS ORDERED: ACETAMINOPHEN 650 MG SUPP R PRN (23:00)
[2025-09-27] MEDS ORDERED: Acetaminophen/Hydrocodone 5 MG/325 MG TABLET PO PRN (23:00)
[2025-09-27] MEDS ORDERED: BISACODYL 5 MG TAB PO PRN (23:00)
[2025-09-27] MEDS ORDERED: Albuterol Sulf/Ipratropium 3 ML VIAL NEB SCH (23:00)
[2025-09-27] MEDS ORDERED: TEMAZEPAM 15 MG CAP PO PRN (23:00)
[2025-09-27] MEDS ORDERED: ACETAMINOPHEN 325 MG TAB PO PRN (23:00)
[2025-09-27 23:28] VITALS: BP 106/62
[2025-09-27] MEDS ORDERED: AZITHROMYCIN 250 ML IV SCH (23:39)
[2025-09-28] MEDS ORDERED: XARE20MG PO (00:30)
[2025-09-28 01:10] VITALS: BP 107/84
[2025-09-28 06:32] LABS: BASO # 0.0 10*3/uL (0.0-0.1); BASO % 0.3 % (0.0-1.0); EOS # 0.1 10*3/uL (0.0-0.4); EOS % 0.4 % (1.0-4.0); MEAN CELL VOLUME 95.6 fl (80.0-94.0); MEAN CORPUSCULAR HGB 32.6 pg (27.0-31.0); MEAN PLATELET VOLUME 9.7 fl (9.6-12.3); MONO # 1.1 10*3/uL (0.1-1.0); MONO % 9.5 % (3.0-9.0); NEUT # 9.0 10*3/uL (2.3-7.9); NEUT % 75.0 % (47.0-73.0); NUCLEATED RED BLOOD CELL 0.0 % (0.0-0.0); NUCLEATED RED BLOOD CELL 0.0 10*3/uL (0.0-0.0); PLATELET COUNT AUTOMATED 246 10*3/uL (130-400); RED CELL DISTRI WIDTH 13.5 % (0-14.5)
[2025-09-28 07:13] LABS: BUN 12 mg/dl (9-23)
[2025-09-28 07:23] LABS: SGPT/ALT < 7 U/L (5-49)
[2025-09-28 08:00] VITALS: BP 100/57
[2025-09-28] MEDS ORDERED: GUAIFENESIN 600 MG TAB ER PO SCH (10:00)
[2025-09-28] MEDS ORDERED: METOPROLOL SUCCINATE XR 25 MG TAB PO SCH (10:00)
[2025-09-28] MEDS ORDERED: FUROSEMIDE 40 MG TAB PO SCH (10:00)
[2025-09-28] MEDS ORDERED: LIDOCAINE 4% PATCH T SCH (10:00)
[2025-09-28] MEDS ORDERED: AZITHROMYCIN 250 ML IV SCH (10:00)
[2025-09-28] MEDS ORDERED: FOLIC ACID 1 MG TAB PO SCH (10:00)
[2025-09-28] MEDS ORDERED: Pantoprazole Sodium 20 MG TAB PO SCH (10:00)
[2025-09-28] MEDS ORDERED: ATORVASTATIN CALCIUM 40 MG TABLET PO SCH (10:00)
[2025-09-28] MEDS ORDERED: POTASSIUM CHLORIDE 20 MEQ TAB PO SCH (10:00)
[2025-09-28 12:00] VITALS: BP 99/52
[2025-09-28] MEDS ORDERED: POTASSIUM CHLORIDE 20 MEQ TAB PO ONE (12:10)
[2025-09-28 16:00] VITALS: BP 113/76
[2025-09-28] MEDS ORDERED: RIVAROXABAN 20 MG TAB PO SCH (17:00)
[2025-09-28 20:00] VITALS: BP 105/50
[2025-09-28] MEDS ORDERED: Vitamin D 1,000 IU TAB (25 MCG) PO SCH (22:00)
[2025-09-28] MEDS ORDERED: FINASTERIDE 5 MG TAB PO SCH (22:00)
[2025-09-28] MEDS ORDERED: Mirtazapine 15 MG TAB PO SCH (22:00)
[2025-09-29] VITALS: BP 100/61
[2025-09-29 06:03] LABS: BUN 9 mg/dl (9-23)
[2025-09-29 06:15] LABS: MEAN CELL VOLUME 97.4 fl (80.0-94.0); MEAN CORPUSCULAR HGB 31.4 pg (27.0-31.0); MEAN PLATELET VOLUME 10.1 fl (9.6-12.3); NUCLEATED RED BLOOD CELL 0.0 % (0.0-0.0); NUCLEATED RED BLOOD CELL 0.0 10*3/uL (0.0-0.0); PLATELET COUNT AUTOMATED 256 10*3/uL (130-400); RED CELL DISTRI WIDTH 13.5 % (0-14.5)
[2025-09-29 06:31] LABS: MANUAL DIFF REFLEX YES
[2025-09-29 07:15] LABS: PLATELET SUFFICIENCY NORMAL (NORMAL)
[2025-09-29 08:00] VITALS: BP 110/60
[2025-09-29] MEDS ORDERED: FOAM BANDAGE 1 EACH BANDAGE T ONE (08:38)
[2025-09-29] MEDS ORDERED: HEEL PROTECTOR DEVICE ONE (08:38)
[2025-09-29 12:00] VITALS: BP 109/52
[2025-09-29] MEDS ORDERED: VIBRA-TAB100 MG PO (13:31)
[2025-09-29] MEDS ORDERED: PREDNISONE10 MG PO (13:31)
[2025-09-29 16:00] VITALS: BP 101/65; BP 143/56
== END 2025-09-29 18:54 | DRG 190 ==
LOC: ED 19:55 → EDHOLD 22:53 → 4E 22:53 → 5E 09-28 06:50
PROVIDERS: Nurse Practitioner Family; Student in an Organized Health Care Education/Training Program; ADMIT Internal Medicine; ATTEND Internal Medicine
DX: J44.1 Chronic obstructive pulmonary disease with (acute) exacerbation (principal); J18.9 Pneumonia, unspecified organism; E44.1 Mild protein-calorie malnutrition; Z68.1 Body mass index [BMI] 19.9 or less, adult; J44.0 Chronic obstructive pulmonary disease with (acute) lower respiratory infection; E78.2 Mixed hyperlipidemia; R00.1 Bradycardia, unspecified; Z66 Do not resuscitate; D72.829 Elevated white blood cell count, unspecified; D53.9 Nutritional anemia, unspecified; E87.6 Hypokalemia; N40.0 Benign prostatic hyperplasia without lower urinary tract symptoms; I48.91 Unspecified atrial fibrillation; Z79.899 Other long term (current) drug therapy; Z79.01 Long term (current) use of anticoagulants; Z79.2 Long term (current) use of antibiotics; Z87.891 Personal history of nicotine dependence; Z82.49 Family history of ischemic heart disease and other diseases of the circulatory system; I25.2 Old myocardial infarction; Z86.73 Personal history of transient ischemic attack (TIA), and cerebral infarction without residual deficits

== ENCOUNTER 2025-09-29 19:52 | Inpatient (IN) | payer OTHER ==
[~2025-09-29] VITALS: Ht 172.7 cm; Wt 59.1 kg
[~2025-09-29 19:52] MED LIST changes: +VIBRA-TAB100 MG PO
[2025-09-29 20:06] VITALS: BP 98/54
[2025-09-29] MEDS ORDERED: Albuterol Sulf/Ipratropium 3 ML VIAL NEB ONE (20:45)
[2025-09-29 21:03] LABS: MEAN CELL VOLUME 96.9 fl (80.0-94.0); MEAN CORPUSCULAR HGB 32.5 pg (27.0-31.0); MEAN PLATELET VOLUME 9.9 fl (9.6-12.3); NUCLEATED RED BLOOD CELL 0.0 % (0.0-0.0); NUCLEATED RED BLOOD CELL 0.0 10*3/uL (0.0-0.0); PLATELET COUNT AUTOMATED 284 10*3/uL (130-400); RED CELL DISTRI WIDTH 13.6 % (0-14.5)
[2025-09-29 21:04] LABS: MANUAL DIFF REFLEX YES
[2025-09-29 21:23] LABS: PLATELET SUFFICIENCY NORMAL (NORMAL)
[2025-09-29 21:24] LABS: BUN 14 mg/dl (9-23)
[2025-09-29] MEDS ORDERED: SODIUM CHLORIDE 0.9% 1,000 ML IV ONE (21:50)
[2025-09-29] MEDS ORDERED: Acetaminophen/Hydrocodone 5 MG/325 MG TABLET PO PRN (22:05)
[2025-09-29] MEDS ORDERED: ACETAMINOPHEN 325 MG TAB PO PRN (22:05)
[2025-09-29] MEDS ORDERED: ACETAMINOPHEN 650 MG SUPP R PRN (22:05)
[2025-09-29] MEDS ORDERED: TEMAZEPAM 15 MG CAP PO PRN (22:05)
[2025-09-29] MEDS ORDERED: Ondansetron Hydrochloride 4 MG/2 ML VIAL IV PRN (22:05)
[2025-09-29] MEDS ORDERED: Albuterol Sulf/Ipratropium 3 ML VIAL NEB SCH (22:35)
[2025-09-29] MEDS ORDERED: METHOCARBAMOL 750 MG TAB PO PRN (22:45)
[2025-09-29 23:00] VITALS: BP 111/62
[2025-09-30 04:30] LABS: MEAN CELL VOLUME 95.1 fl (80.0-94.0); MEAN CORPUSCULAR HGB 31.7 pg (27.0-31.0); MEAN PLATELET VOLUME 10.0 fl (9.6-12.3); NUCLEATED RED BLOOD CELL 0.0 % (0.0-0.0); NUCLEATED RED BLOOD CELL 0.0 10*3/uL (0.0-0.0); PLATELET COUNT AUTOMATED 231 10*3/uL (130-400); RED CELL DISTRI WIDTH 13.7 % (0-14.5)
[2025-09-30 04:31] LABS: MANUAL DIFF REFLEX YES
[2025-09-30 04:55] LABS: BUN 15 mg/dl (9-23); FREE T4 1.02 ng/dl (0.89-1.76)
[2025-09-30 05:01] LABS: SGPT/ALT < 7 U/L (5-49)
[2025-09-30 05:10] LABS: PLATELET SUFFICIENCY NORMAL (NORMAL)
[2025-09-30] MEDS ORDERED: Pantoprazole Sodium 20 MG TAB PO SCH (06:00)
[2025-09-30 08:00] VITALS: BP 122/57
[2025-09-30] MEDS ORDERED: LIDOCAINE 4% PATCH T SCH (10:00)
[2025-09-30] MEDS ORDERED: FOLIC ACID 1 MG TAB PO SCH (10:00)
[2025-09-30] MEDS ORDERED: predniSONE 20 MG TAB PO SCH (10:00)
[2025-09-30] MEDS ORDERED: POTASSIUM CHLORIDE 20 MEQ TAB PO SCH (10:00)
[2025-09-30] MEDS ORDERED: RIVAROXABAN 20 MG TAB PO SCH (10:00)
[2025-09-30] MEDS ORDERED: ATORVASTATIN CALCIUM 40 MG TABLET PO SCH (10:00)
[2025-09-30] MEDS ORDERED: SILVER SULFADIAZINE 25 GM TUBE T SCH (10:00)
[2025-09-30] MEDS ORDERED: GUAIFENESIN 600 MG TAB ER PO SCH (10:00)
[2025-09-30 12:00] VITALS: BP 118/57
[2025-09-30] MEDS ORDERED: Ampicillin Sodium/Sulbactam 3 GM in SODIUM CHLORIDE 0.9% 100 ML IV SCH (14:00)
[2025-09-30 15:37] VITALS: BP 103/87
[2025-09-30 20:00] VITALS: BP 107/66
[2025-09-30] MEDS ORDERED: FINASTERIDE 5 MG TAB PO SCH (22:00)
[2025-09-30] MEDS ORDERED: Mirtazapine 15 MG TAB PO SCH (22:00)
[2025-09-30] MEDS ORDERED: Vitamin D 1,000 IU TAB (25 MCG) PO SCH (22:00)
[2025-10-01] VITALS: BP 110/69
[2025-10-01 05:06] LABS: BUN 13 mg/dl (9-23)
[2025-10-01 06:43] LABS: BASO # 0.0 10*3/uL (0.0-0.1); BASO % 0.2 % (0.0-1.0); EOS # 0.0 10*3/uL (0.0-0.4); EOS % 0.0 % (1.0-4.0); MEAN CELL VOLUME 97.1 fl (80.0-94.0); MEAN CORPUSCULAR HGB 31.7 pg (27.0-31.0); MEAN PLATELET VOLUME 10.2 fl (9.6-12.3); MONO # 0.7 10*3/uL (0.1-1.0); MONO % 5.8 % (3.0-9.0); NEUT # 11.0 10*3/uL (2.3-7.9); NEUT % 89.0 % (47.0-73.0); NUCLEATED RED BLOOD CELL 0.0 % (0.0-0.0); NUCLEATED RED BLOOD CELL 0.0 10*3/uL (0.0-0.0); PLATELET COUNT AUTOMATED 238 10*3/uL (130-400); RED CELL DISTRI WIDTH 13.9 % (0-14.5)
[2025-10-01 08:00] VITALS: BP 136/66
[2025-10-01 12:00] VITALS: BP 108/75
[2025-10-01 16:00] VITALS: BP 113/58
[2025-10-01 20:00] VITALS: BP 103/70
[2025-10-02] VITALS: BP 124/68
[2025-10-02 06:31] LABS: BUN 13 mg/dl (9-23)
[2025-10-02 06:45] LABS: BASO # 0.0 10*3/uL (0.0-0.1); BASO % 0.1 % (0.0-1.0); EOS # 0.0 10*3/uL (0.0-0.4); EOS % 0.0 % (1.0-4.0); MEAN CELL VOLUME 100.0 fl (80.0-94.0); MEAN CORPUSCULAR HGB 32.5 pg (27.0-31.0); MEAN PLATELET VOLUME 10.0 fl (9.6-12.3); MONO # 1.1 10*3/uL (0.1-1.0); MONO % 7.5 % (3.0-9.0); NEUT # 12.3 10*3/uL (2.3-7.9); NEUT % 86.4 % (47.0-73.0); NUCLEATED RED BLOOD CELL 0.0 % (0.0-0.0); NUCLEATED RED BLOOD CELL 0.0 10*3/uL (0.0-0.0); RED CELL DISTRI WIDTH 14.1 % (0-14.5)
[2025-10-02 06:53] LABS: PLATELET COUNT AUTOMATED 328 10*3/uL (130-400)
[2025-10-02 08:00] VITALS: BP 123/70
[2025-10-02 12:00] VITALS: BP 136/73
[2025-10-02 16:00] VITALS: BP 104/56
[2025-10-02 20:00] VITALS: BP 109/48
[2025-10-03] VITALS (8 sets, daily range): BP systolic 92–122; BP diastolic 67–89
[2025-10-03] MEDS ORDERED: Lidocaine Hydrochloride 4% 5 ML AMP NEB ONE (08:35)
[2025-10-03] MEDS ORDERED: Albuterol Sulfate 1.25 MG/3 ML VIAL NEB ONE (08:35)
[2025-10-03] MEDS ORDERED: Lactated Ringer's Solution 500 ML IV ONE (09:14)
[2025-10-03] MEDS ORDERED: Albuterol Sulfate 2.5 MG/0.5 ML VIAL NEB ONE ×2 (09:50→10:07)
[2025-10-03] MEDS ORDERED: Lidocaine Hydrochloride 4% 5 ML AMP ONE (10:07)
[2025-10-03] MEDS ORDERED: Albuterol Sulf/Ipratropium 3 ML VIAL NEB ONE ×2 (10:40→11:15)
[2025-10-03] MEDS ORDERED: PROPOFOL 200 MG/20 ML VIAL IV ONE (14:04)
[2025-10-03] MEDS ORDERED: Lidocaine Hydrochloride 2% 5 ML SDV IV ONE (14:04)
[2025-10-04] VITALS: BP 120/69
[2025-10-04 08:00] VITALS: BP 134/88; BP 134/98
[2025-10-04] MEDS ORDERED: PREDNISONE50 MG PO (11:59)
[2025-10-04] MEDS ORDERED: AMOX-CLAV 875-1 EACH PO (11:59)
[2025-10-04 12:00] VITALS: BP 115/73
[2025-10-04 13:07] LABS: ACID FAST SPEC PROCESSING Concentration (.)
== END 2025-10-04 14:29 | DRG 177 ==
LOC: ED 19:52 → 5E 21:48 → EDHOLD 21:48 → 5E 22:07
PROVIDERS: Internal Medicine Critical Care Medicine; Nurse Practitioner Family; Student in an Organized Health Care Education/Training Program; ADMIT Student in an Organized Health Care Education/Training Program; ATTEND Student in an Organized Health Care Education/Training Program
PROC: 0BC18ZZ Extirpation of Matter from Trachea, Via Natural or Artificial Opening Endoscopic (ICD-10-PCS; principal; 2025-10-03)
PROC: 0BC98ZZ Extirpation of Matter from Lingula Bronchus, Via Natural or Artificial Opening Endoscopic (ICD-10-PCS; 2025-10-03)
PROC: 0BC48ZZ Extirpation of Matter from Right Upper Lobe Bronchus, Via Natural or Artificial Opening Endoscopic (ICD-10-PCS; 2025-10-03)
PROC: 0BC88ZZ Extirpation of Matter from Left Upper Lobe Bronchus, Via Natural or Artificial Opening Endoscopic (ICD-10-PCS; 2025-10-03)
PROC: 0BC58ZZ Extirpation of Matter from Right Middle Lobe Bronchus, Via Natural or Artificial Opening Endoscopic (ICD-10-PCS; 2025-10-03)
PROC: 0BC38ZZ Extirpation of Matter from Right Main Bronchus, Via Natural or Artificial Opening Endoscopic (ICD-10-PCS; 2025-10-03)
PROC: 0BC78ZZ Extirpation of Matter from Left Main Bronchus, Via Natural or Artificial Opening Endoscopic (ICD-10-PCS; 2025-10-03)
PROC: 0BC68ZZ Extirpation of Matter from Right Lower Lobe Bronchus, Via Natural or Artificial Opening Endoscopic (ICD-10-PCS; 2025-10-03)
PROC: 0BCB8ZZ Extirpation of Matter from Left Lower Lobe Bronchus, Via Natural or Artificial Opening Endoscopic (ICD-10-PCS; 2025-10-03)
DX: J69.0 Pneumonitis due to inhalation of food and vomit (principal); E43 Unspecified severe protein-calorie malnutrition; J96.01 Acute respiratory failure with hypoxia; E87.20 Acidosis, unspecified; Z68.1 Body mass index [BMI] 19.9 or less, adult; J98.11 Atelectasis; D72.829 Elevated white blood cell count, unspecified; I25.10 Atherosclerotic heart disease of native coronary artery without angina pectoris; Z66 Do not resuscitate; I48.91 Unspecified atrial fibrillation; R73.9 Hyperglycemia, unspecified; L89.321 Pressure ulcer of left buttock, stage 1; L89.311 Pressure ulcer of right buttock, stage 1; L89.151 Pressure ulcer of sacral region, stage 1; D53.9 Nutritional anemia, unspecified; I10 Essential (primary) hypertension; J44.9 Chronic obstructive pulmonary disease, unspecified; K21.9 Gastro-esophageal reflux disease without esophagitis; N40.0 Benign prostatic hyperplasia without lower urinary tract symptoms; E78.5 Hyperlipidemia, unspecified; Z98.42 Cataract extraction status, left eye; Z98.41 Cataract extraction status, right eye; Z79.01 Long term (current) use of anticoagulants; I25.2 Old myocardial infarction; Z79.899 Other long term (current) drug therapy; Z79.2 Long term (current) use of antibiotics; Z82.49 Family history of ischemic heart disease and other diseases of the circulatory system; Z86.73 Personal history of transient ischemic attack (TIA), and cerebral infarction without residual deficits; Z87.891 Personal history of nicotine dependence

== ENCOUNTER 2025-10-11 17:29 | Emergency (ER) | payer OTHER ==
[~2025-10-11] VITALS: Ht 170.1 cm; Wt 53.1 kg
[2025-10-11 17:32] VITALS: BP 110/57
[2025-10-11 20:01] VITALS: BP 104/67; BP 94/58
== END 2025-10-11 20:26 | disposition admitted as inpatient to this hospital (09) ==
LOC: ED 17:29 → EDHOLD 19:30 → ED 20:26
DX: S22.079A Unspecified fracture of T9-T10 vertebra, initial encounter for closed fracture (principal); I10 Essential (primary) hypertension; I25.2 Old myocardial infarction; J44.9 Chronic obstructive pulmonary disease, unspecified; I25.10 Atherosclerotic heart disease of native coronary artery without angina pectoris; K21.9 Gastro-esophageal reflux disease without esophagitis; M19.90 Unspecified osteoarthritis, unspecified site; Z87.891 Personal history of nicotine dependence; Z98.890 Other specified postprocedural states; X58.XXXA Exposure to other specified factors, initial encounter; Y93.89 Activity, other specified; Y92.89 Other specified places as the place of occurrence of the external cause; Y99.8 Other external cause status

== ENCOUNTER 2025-10-29 15:53 | Emergency (ER) | payer OTHER ==
[~2025-10-29] VITALS: Wt 53.1 kg
[2025-10-29] MEDS ORDERED: ATORVASTATIN CA10 M1 PO (16:23)
[2025-10-29] MEDS ORDERED: CLOPIDOGREL75 MG PO (16:24)
[2025-10-29] MEDS ORDERED: ATROVENT HFA12.9 GM INH (16:24)
[2025-10-29] MEDS ORDERED: OXYCODONE-ACET1 EAC3 PO (16:26)
[2025-10-29] MEDS ORDERED: Ondansetron4 MG PO (16:26)
[2025-10-29 17:15] LABS: BASO # 0.0 10*3/uL (0.0-0.1); BASO % 0.5 % (0.0-1.0); EOS # 0.2 10*3/uL (0.0-0.4); EOS % 2.7 % (1.0-4.0); MEAN CELL VOLUME 99.1 fl (80.0-94.0); MEAN CORPUSCULAR HGB 31.6 pg (27.0-31.0); MEAN PLATELET VOLUME 9.1 fl (9.6-12.3); MONO # 0.5 10*3/uL (0.1-1.0); MONO % 8.6 % (3.0-9.0); NEUT # 3.6 10*3/uL (2.3-7.9); NEUT % 66.1 % (47.0-73.0); NUCLEATED RED BLOOD CELL 0.0 % (0.0-0.0); NUCLEATED RED BLOOD CELL 0.0 10*3/uL (0.0-0.0); PLATELET COUNT AUTOMATED 279 10*3/uL (130-400); RED CELL DISTRI WIDTH 14.9 % (0-14.5)
[2025-10-29 17:33] LABS: BUN 11 mg/dl (9-23)
[2025-10-29] MEDS ORDERED: CEPHALEXIN500 M1 PO (18:43)
== END 2025-10-29 19:08 ==
LOC: ED 15:53
PROVIDERS: Emergency Medicine
DX: N39.0 Urinary tract infection, site not specified (principal); I10 Essential (primary) hypertension; I25.2 Old myocardial infarction; J44.9 Chronic obstructive pulmonary disease, unspecified; I25.10 Atherosclerotic heart disease of native coronary artery without angina pectoris; K21.9 Gastro-esophageal reflux disease without esophagitis; Z98.890 Other specified postprocedural states